=== PATIENT | female | born 1955 | race Caucasian/White ===

== ENCOUNTER 2016-12-07 18:02 | Observation (INO) | payer SELFPAY ==
[~2016-12-07] VITALS: Ht 147.3 cm; Wt 90.8 kg
[~2016-12-07 18:02] MED LIST: ASPEC325 PO; ATOR-24 PO; CLOP1TAB5 PO; CYCL10TA6 PO; LVQ250 PO; METO-551 PO; NTRSLP4 SL; NVLGI7030 SC; PRED20TA PO; VNTHFA/IN INH
[2016-12-07 19:00] VITALS: BP 144/81; PULSE 63; TEMP 36.6; O2SAT 96; Ht 147.3 cm; Wt 90.8 kg
[2016-12-07] MEDS ORDERED: NITROGLYCERIN 0.4 MG SL PER TAB CHARGE SL PRN ×2 (20:00)
[2016-12-07] MEDS ORDERED: ACETAMINOPHEN 325 MG TAB PO PRN (20:00)
[2016-12-07] MEDS ORDERED: ALBUTEROL HFA 8 GM INHALER INH PRN (20:00)
[2016-12-07] MEDS ORDERED: GI COCKTAIL PO PRN (20:00)
[2016-12-07] MEDS ORDERED: ZOLPIDEM TARTRATE 5 MG TAB PO PRN (20:00)
[2016-12-07] MEDS ORDERED: ONDANSETRON INJ 2 MG/ML 2 ML VIAL IV PRN (20:00)
[2016-12-07] MEDS ORDERED: ATORVASTATIN 40 MG TAB PO SCH (21:00)
[2016-12-07] MEDS ORDERED: INSULIN 70% ASPART PROTAMINE/30% ASPART SC SCH (21:00)
[2016-12-07] MEDS: METOPROLOL TARTRATE 50 MG TAB PO SCH (21:00)
--- NOTE | 2016-12-07 22:53 | HISTORY & PHYSICAL EXAMINATION ---
DATE OF ADMISSION: 12/07/2016 PRIMARY CARE PHYSICIAN: Dr. Nassar. CHIEF COMPLAINT: Chest pain. HISTORY OF PRESENT ILLNESS: Ms. Barbour is a pleasant 61-year-old woman with a history of severe coronary artery disease status post CABG and multiple prior PCIs with stents, known to me; who returns from outside hospital ED with chest pain. The patient has a long cardiac history as discussed below. She was recently admitted to [facility] on 2 occasions 2 weeks ago. Initial hospitalization occurred in the setting of an NSTEMI when presented with a troponin that peaked at approximately 3.6. She underwent cardiac catheterization at that time which showed a new 99% lesion in her OM1 distal to previously placed stents. She underwent PCTA with a reasonable result but stent could not be placed due to difficult anatomy. Post-procedure, she was chest pain free, and was discharged to home. She returned the subsequent day with COPD exacerbation. She was treated with bronchodilators, steroids and antibiotics, and discharged to home. Since that time, she has largely been well. She has been walking around her home and outside without significant chest discomfort. Although she does feel that she is more weak than before. Today, the day of admission, patient was at home, watching TV when felt a hot burning sensation starting in her epigastric region which extended up towards her head. This was different than the pain that she has had before. She was concerned, took 1 nitroglycerin with minimal relief and called the EMS. Upon arriving in the [facility] ED, she received 1 dose of morphine and her chest pain was resolved. She had an EKG there, which showed normal sinus rhythm with anterolateral T-wave inversions, unchanged from prior EKGs. She had 2 troponins that were negative. As cardiology was not available at [place] she was transferred back here for further management. At the time of arrival, patient was comfortable. She denies any recurrent chest pain. She denies any shortness of breath, palpitations or presyncope. No other new complaints. PAST MEDICAL HISTORY: 1. Coronary artery disease. The patient underwent prior 3-vessel bypass surgery with GRIMES to LAD, vein graft to ramus, vein graft to OM1. She had an NSTEMI back in June of 2016, at which point she was noted to have severe OM1 and ramus disease with occluded vein graft to ramus and occluded vein graft to circumflex. She was transferred to [facility] where Dr. Syed placed drug-eluting stents to her OM, ramus and distal left main into her proximal circumflex. Post stents patient was largely chest pain free until returned back to [facility] in November 2016. There had a PTCA of OM1 with reasonable result. 2. Type 2 diabetes. 3. Hypertension. 4. Prior tobacco abuse. 5. Hyperlipidemia. PAST SURGICAL HISTORY: 1. Prior cardiac surgery as above. 2. Status post hysterectomy. 3. Status post appendectomy. 4. Status post cholecystectomy. 5. Status post tubal ligation. FAMILY HISTORY: She has a sister and a daughter both with diabetes. Her father and mother both had heart disease as well as her brother. Mother of cancer at age 63. SOCIAL HISTORY: Long-term smoker, quit after her last hospitalization. Denies significant alcohol use. Currently out of work. 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 Lives near [place]. REVIEW OF SYSTEMS: A 10-point review of systems is completed and otherwise negative unless stated in the HPI. PHYSICAL EXAMINATION: VITAL SIGNS: The patient is afebrile. Blood pressure 144/84, heart rate was within normal range. GENERAL: The patient appears comfortable, in no acute distress. HEENT: Sclerae are anicteric. Oropharynx is clear. Mucous membranes are moist. NECK: Supple, no lymphadenopathy. LUNGS: Clear to auscultation. She had reasonable air movement with no significant wheezing. CARDIAC: She had a regular rate and rhythm with no appreciable murmurs, rubs or gallops. ABDOMEN: Soft, nontender, nondistended with positive bowel sounds. EXTREMITIES: Warm. She had trace lower extremity edema. She had intact distal pulses. SKIN: Showed no rashes or lesions. NEUROLOGIC: Cranial nerves II-XII are grossly intact. PSYCHIATRIC: She was alert and oriented x3 and mood and was appropriate. LABORATORY DATA: At outside hospital showed white blood cell count 6.8, hemoglobin of 12.4, platelets of 195. Her INR was 0.96. Her initial troponin was 0.02. Subsequent troponin was 0.022. Sodium was 137, potassium 4.4, BUN 22, creatinine 1.2. LFTs were within normal limits. Chest x-ray showed cardiomegaly with mild edema. EKG showed sinus bradycardia with anterior septal infarct and ST-T wave abnormality, potentially consistent with anterolateral ischemia, unchanged from prior. IMPRESSION AND PLAN: 1. Chest pain. The patient is here with atypical chest pain, unlikely to be cardiac in origin. Cardiac enzymes have been negative x2. EKG is unchanged. Only residual chest pain at this time, likely musculoskeletal. We will continue to treat conservatively. We will repeat EKG tonight repeat cardiac enzymes overnight. Assuming cardiac enzymes remain unremarkable and patient remains largely chest pain free, potentially could be discharged tomorrow with cardiology followup. 2. History of severe coronary artery disease. Continue patient's prior aspirin, Plavix, beta malcolm, high dose statin. She will need outpatient followup and at that time will consider stress test if recurrent pain to assess ischemic burden. 3. Mild pulmonary edema. We will resume patient on prior thiazide diuretic. 4. Diabetes. We will continue home diabetic regimen with insulin 70/30 and Accu-Cheks. 5. Chronic bronchitis. Symptoms slowly resolving. We will continue home bronchodilators. 6. Prophylaxis. We will start her on subQ Lovenox. DISPOSITION: The patient likely discharged to home tomorrow assuming cardiac enzymes and telemetry unremarkable. MTDD
[2016-12-08 00:05] VITALS: O2SAT 96
[2016-12-08 00:26] VITALS: BP 100/67; PULSE 74; TEMP 36.7; O2SAT 94
[2016-12-08] MEDS: CYCLOBENZAPRINE HCL 10 MG TAB PO SCH ×2 (00:35→08:39)
--- NOTE | 2016-12-08 02:51 | Medical Consult ---
Consultation Date of Consultation: Dec 08, 2016. Attending Physician: Harlan Fisher MD History of Present Illness 61 y/o F w/Hx DM, HTN, HPL and severe CAD - transferred from OSH for cardiac evaluation due to ongoing CP. She denies significant SOB, N/V, diaphoresis or radiation. She is currently describing chest wall pain rather than substernal pain. Past Medical/Surgical History 1) CAD 3V CABG (jett to LAD, v. to ramus, v. to OM1) NSTEMI 2016 leading to cath and 2 stents due to graft occlusions NSTEMI 2017 - PTCI of OM1 2) HTN 3) IDDM 4) Tobacco abuse - quit in last Mo Family History Diabetes mellitus SISTER, Onset:25's - 30 ( age 47) DAUGHTER, Onset:20's - 25 FH: brain cancer MOTHER ( age 63) FH: heart attack FATHER MOTHER FH: heart disease FATHER BROTHER BROTHER Hypertension FATHER BROTHER ( age 67) BROTHER Social History Smoking Status: Current Every Day Smoker Drug Use: none Allergies Coded Allergies: Ampicillin (Verified Allergy, Unknown, unknown, 11/17/16) Codeine (Verified Allergy, Unknown, rash, 11/17/16) Sulfa Antibiotics (Verified Allergy, Unknown, unknown, 11/17/16) Current Inpatient Medications Current Inpatient Medications Medications (Trade) Dose Ordered Sig/Graham Route Start Time Stop Time Status Last Admin Dose Admin Enoxaparin Sodium (Lovenox Inj) 40 mg Q24H SC 12/08/16 06:00 01/07/17 05:59 Acetaminophen (Tylenol Tab) 650 mg Q4H PRN PO 12/07/16 20:00 01/06/17 19:59 Zolpidem Tartrate (Ambien Tab) 5 mg HSZ PRN PO 12/07/16 20:00 01/06/17 19:59 Ondansetron HCl (Zofran Inj) 4 mg Q6H PRN IV 12/07/16 20:00 01/06/17 19:59 Nitroglycerin (Nitrostat Tab) 0.4 mg UD PRN SL 12/07/16 20:00 01/06/17 19:59 Albuterol (Ventolin Hfa Inhaler) 2 puffs Q6H PRN INH 12/07/16 20:00 01/06/17 19:59 Atorvastatin Calcium (Lipitor Tab) 40 mg HS PO 12/07/16 21:00 01/06/17 20:59 12/08/16 00:30 40 MG Clopidogrel Bisulfate (plAVix TAB) 75 mg DAILY PO 12/08/16 09:00 01/07/17 08:59 Cyclobenzaprine HCl (Flexeril Tab) 10 mg TID PO 12/07/16 21:00 01/06/17 20:59 12/08/16 00:35 10 MG Insulin Aspart Prota 70%/Aspart 30% (novoLOG MIX 70/ 30) 20 units QAM SC 12/08/16 09:00 01/07/17 08:59 Metoprolol Tartrate (Lopressor Tab) 50 mg BID PO 12/07/16 21:00 01/06/17 20:59 Aspirin (Ecotrin Tab) 81 mg QAM PO 12/08/16 09:00 01/07/17 08:59 Pantoprazole Sodium (Protonix Tab) 40 mg QAM PO 12/08/16 09:00 01/07/17 08:59 Miscellaneous Medication (Gi Cocktail) 24 ml DAILY PRN PO 12/07/16 20:00 01/06/17 19:59 UNV Insulin Aspart Prota 70%/Aspart 30% (novoLOG MIX 70/ 30) 12 units DAILY@1700 SC 12/08/16 17:00 01/07/17 16:59 Review of Systems Constitutional: No chills, No fever, No sweats Eyes: No eye pain, No worsening of vision ENT: No hearing loss, No nasal symptoms, No unusual epistaxis Respiratory: No cough, No sputum, No wheezing Cardiovascular: + chest pain, No PND, No claudication, No edema, No orthopnea Abdomen: No nausea, No pain, No vomiting Musculoskeletal: No joint pain, No muscle pain Genitourinary - Female: No dysuria, No urinary frequency, No urinary urgency Neurologic: No memory loss, No paralysis, No weakness Psychiatric: No depression symptoms Endocrine: No fatigue Hematologic / Lymphatic: No abnormal bleeding/bruising Integumentary: No rash Physical Exam Date Time Temp Pulse Resp B/P Pulse Ox O2 Delivery O2 Flow Rate FiO2 12/08/16 00:26 36.7 74 20 100/67 94 Room Air 12/08/16 00:05 96 Room Air 1/31/17 19:00 36.6 63 18 144/81 96 Room Air General Appearance: WD/WN, no apparent distress Head: normocephalic, atraumatic Eyes: normal inspection, PERRL, EOMI ENT: normal ENT inspection, pharynx normal Neck: supple, no adenopathy, thyroid normal, no JVD Respiratory/Chest: chest non-tender, lungs clear, normal breath sounds Cardiovascular: regular rate, rhythm, no edema, no gallop, no JVD, no murmur, normal peripheral pulses Abdomen/GI: normal bowel sounds, non tender, soft Back: normal inspection, no CVA tenderness, no muscle spasm, normal range of motion Extremities/Musculoskelatal: normal inspection, no calf tenderness, normal capillary refill, no pedal edema, normal range of motion Neurologic/Psych: deployment manager II-XII nml as tested, no motor/sensory deficits, alert, normal mood/affect, normal reflexes, oriented x 3 Skin: normal color, warm/dry, no rash Laboratory Results Last 24 Hours Test 12/07/16 19:58 12/07/16 20:50 Creatine Kinase MB Ratio Creatine Kinase MB < 0.5 ng/ml Troponin I < 0.015 ng/ml Assessment & Plan 61 y/o F w/Hx DM, HTN, HPL and severe CAD - transferred from OSH for cardiac evaluation due to ongoing CP. 1) CP - pt was admitted by interventional cardiology - per admission there is no immediate plan for catheterization and she is being medically managed. We will defer to cardiology for further testing. Currently there has not been a troponin elevation to indicate an evolving SD and her pain is brought about by coughing appearing more as chest wall pain. she will cont Plavix, ASA. statin. B malcolm. 2) DM - placed on sliding scale 3) HTN - cont Metoprolol 4) HPL - Cont Atorvastatin ttal time for this consult including chart review - review of attending notes, labs, prev cath report - 31 min
[2016-12-08 04:00] VITALS: O2SAT 96
[2016-12-08 04:45] VITALS: BP 124/79; PULSE 60; TEMP 36.5; O2SAT 95
[2016-12-08] MEDS ORDERED: ENOXAPARIN 40 MG/0.4 ML SYR SC SCH (06:00)
[2016-12-08 06:17] LABS: HEMATOCRIT 36.4 % (37-47); MEAN CELL VOLUME 91.5 fL (80-100); MEAN CORPUSCULAR HEMOGLOBIN 31.2 pg (25-34); MEAN CORPUSCULAR HGB CONC 34.1 g/dl (32-36); MEAN PLATELET VOLUME 8.5 fL (7.4-10.4); PLATELET COUNT 151 K/uL (130-400); RED BLOOD COUNT 3.98 M/uL (4.2-5.4); WHITE BLOOD COUNT 6.03 K/uL (4.8-10.8)
[2016-12-08] MEDS ORDERED: ALUMINUM/MAGNESIUM SUSP 72 ML, LIDOCAINE HCL 2% VISCOUS SOLN 24 ML, BARCODE IDENTIFIER ... PO PRN ×2 (06:45)
[2016-12-08 06:47] LABS: BLOOD UREA NITROGEN 19 mg/dl (7-18); BUN/CREATININE RATIO 17.3 (10-20); CALCIUM 8.9 mg/dl (8.5-10.1); CARBON DIOXIDE 28 mmol/L (21-32); CHLORIDE 109 mmol/L (98-107); GLUCOSE 144 mg/dl (70-99); POTASSIUM 4.1 mmol/L (3.5-5.1); SODIUM 144 mmol/L (136-145)
[2016-12-08 08:11] VITALS: BP 126/78; PULSE 63; TEMP 36.3; O2SAT 96
[2016-12-08] MEDS: METOPROLOL TARTRATE 50 MG TAB PO SCH (08:39)
[2016-12-08] MEDS ORDERED: PANTOprazole SOD 40 MG TAB PO SCH (09:00)
[2016-12-08] MEDS ORDERED: CLOPIDOGREL BISULFATE 75 MG TAB PO SCH (09:00)
[2016-12-08] MEDS ORDERED: ASPIRIN 81 MG ECTAB PO SCH (09:00)
[2016-12-08] MEDS ORDERED: INSULIN 70% ASPART PROTAMINE/30% ASPART SC SCH ×2 (09:00→17:00)
[2016-12-08] MEDS ORDERED: ASPEC81 PO (09:03)
[2016-12-08] MEDS ORDERED: PRT40 PO (09:03)
[2016-12-08] MEDS ORDERED: TRIA37.5 PO (09:03)
--- NOTE | 2016-12-08 09:06 | Discharge Instructions ---
Discharge Instructions Admission Reason for Admission: Chest Pain Discharge Discharge Diagnosis / Problem: Chest pain Discharge Goals Goal(s): Decrease discomfort, Improve function Activity Recommendations Activity Limitations: resume your previous activity Lifting Limitations: none Exercise/Sports Limitations: none May Resume Sexual Activity: when tolerated Shower/Bathe: no limitations Driving or Machine Use: no limitations . Instructions / Follow-Up Instructions / Follow-Up Follow-up with primary care in 1-2 weeks. Follow-up with cardiology in 1 month Current Hospital Diet Patient's current hospital diet: AHA Diet (Heart Healthy), Diabetes Type 2 Diet Discharge Diet Recommended Diet: AHA Diet (Heart Healthy), Diabetes Type 2 Diet Procedures Procedures Performed: None Pending Studies Studies pending at discharge: no Laboratory Results Hemoglobin A1c Test 11/17/16 10:15 Range/Units Estimated Average Glucose 249 mg/dl Hemoglobin A1c 10.3 H 4.5-5.6 % Medical Emergencies . Who to Call and When: Medical Emergencies: If at any time you feel your situation is an emergency, please call 911 immediately. . Non-Emergent Contact Non-Emergency issues call your: Primary Care Provider, Patent Chemist Contact Number: Cardiology - Dr. Fisher [phone] . . "Provider Documentation" section prepared by Leonard Fisher. VTE Core Measure Inpt VTE Proph given/why not?: Enoxaparin (Lovenox)SQ
--- NOTE | 2016-12-08 09:18 | Discharge Summary ---
Discharge Summary Admission Date: Dec 07, 2016 at 19:05 Discharge Date: Dec 08, 2016 Discharge Disposition: Home Principal Diagnosis: Chest Paini Immunizations: Have You Had Influenza Vaccine: No History of Pneumococcal: No Procedures: None Consultations: Cardiology Medication Reconciliation New Medications: Triamterene/Hctz (Dyazide 37.5MG/25MG) Cap 1 CAP PO DAILY PRN for leg swelling for 30 Days, #30 CAP 3 Refills Aspirin (Aspirin EC Low Dose) 81 Mg Ectab 81 MG PO QAM for 30 Days, #30 TAB 9 Refills Pantoprazole (Pantoprazole Sodium) 40 Mg Tab 40 MG PO QAM for 30 Days, #30 TAB 9 Refills Continued Medications: Albuterol Hfa (Ventolin Hfa) 200 Puffs/00224 Mcg Aers 2-4 PUFFS INH Q6H PRN for SOB/Wheezing, #1 INHALER Atorvastatin (Lipitor) 40 Mg Tab 1 TAB PO HS for 90 Days, #90 TAB 3 Refills Clopidogrel Bisulfate (Plavix) 75 Mg Tab 75 MG PO DAILY, #30 TAB Take as directed. Cyclobenzaprine Hcl (Flexeril) 10 Mg Tab 1 TAB PO TID for 10 Days, #30 TAB Insulin Aspart 70/30 (Novolog Mix 70/30) Susp 20 UNIT SC QAM, BTL Insulin Aspart 70/30 (Novolog Mix 70/30) Susp 12 UNIT SC QPM, BTL Metoprolol Tartrate (Lopressor) 50 Mg Tab 1 TAB PO BID for 30 Days, #60 TAB Take as directed Nitroglycerin (Nitrostat) 0.4 Mg/1 Tab Subl 0.4 MG SL UD PRN for Chest Pain for 30 Days, #30 TAB Take 1 tablet every 5 minutes for chest pain, up to 3 times. If pain not resolved call 911 or go to ER. Discontinued Medications: Aspirin (Aspirin) 325 Mg Ectab 325 MG PO QAM for 30 Days, #30 TAB Take as directed Levofloxacin (Levofloxacin) 250 Mg Tab 250 MG PO DAILY for 5 Days, #5 TAB Take for urinary tract infection starting 11/20/15, finish on 11/24/15. Prednisone (Prednisone) 20 Mg Tab 2 TAB PO DAILY, #8 TAB Discharge Exam Physical Exam: General Appearance: WD/WN ENT: hearing grossly normal, pharynx normal Neck: supple, no JVD Respiratory/Chest: lungs clear, normal breath sounds, no respiratory distress Cardiovascular: regular rate, rhythm, no edema, no gallop, no JVD, + pertinent finding (Chest wall tender to palpation on left side lateral to sternum) Abdomen / GI: normal bowel sounds, non tender, soft Extremities: no pedal edema Neurologic/Psychiatric: interpreter translator II-XII nml as tested, alert, normal mood/affect Skin: normal color, warm/dry, no rash Hospital Course Ms. Barbour is a pleasant 61-year-old woman with a history of severe coronary artery disease status post CABG and multiple prior PCIs with stents who returned from outside hospital ED with chest pain. Patient with 2 recent hospitalizations at [facility]. Initially admitted with NSTEMI 3 weeks ago. Treated with PTCA of 99% OM1, stent could not be delivered. Adequate POBA result. Readmitted next day with COPD exacerbation. Had been doing well until day of admission when developed burning epigastric pain which radiated up through her head. Pain improved with 1 slntg at home, relieved completely with morphine in the ED. Initial ECG, cardiac enzymes at [facility] ED unremarkable. Transferred to [facility] where cardiac enzymes remained negative, ecg/telemetry unremarkable. She had mild left sided chest wall tenderness to palpation, worse with coughing but no other recurrent chest pain. Pain thought to be musculoskeletal vs possible GI and non-cardiac. Will discharge on prior DAPT, and remainder of cardiac meds. Added PPI and prior Dyazide for mild lower extremity edema. Patient will follow-up with her PCP in 1-2 weeks. Follow-up with cardiology in 1-2 months. If recurrent anginal pain in interim would consider stress test. Discussed case with Dr. Syed at [facility]. May have additional interventional options if significant ischemia. Total Time Spent: Less than 30 minutes This includes examination of the patient, discharge planning, medication reconciliation, and communication with other providers. Discharge Instructions Please refer to the electronic Patient Visit Report (Discharge Instructions) for additional information. Follow-Up PCP 1-2 weeks Cardiology 1-2 months.
[2016-12-08 09:31] VITALS: BP 126/78; PULSE 63; TEMP 36.3; O2SAT 96
== END 2016-12-08 12:45 | disposition home or self-care (01) ==
LOC: INTOOBSV 19:05 → C.MED 19:05
PROVIDERS: ADMIT Internal Medicine Interventional Cardiology; ATTEND Internal Medicine Interventional Cardiology
DX: R07.89 Other chest pain (principal); J81.1 Chronic pulmonary edema; I25.10 Atherosclerotic heart disease of native coronary artery without angina pectoris; J44.9 Chronic obstructive pulmonary disease, unspecified; E11.9 Type 2 diabetes mellitus without complications; I10 Essential (primary) hypertension; E78.5 Hyperlipidemia, unspecified; I25.2 Old myocardial infarction; Z87.891 Personal history of nicotine dependence; Z95.1 Presence of aortocoronary bypass graft; Z95.5 Presence of coronary angioplasty implant and graft; Z79.01 Long term (current) use of anticoagulants; Z79.4 Long term (current) use of insulin; Z79.899 Other long term (current) drug therapy; Z88.0 Allergy status to penicillin; Z88.2 Allergy status to sulfonamides; Z88.5 Allergy status to narcotic agent; Z82.49 Family history of ischemic heart disease and other diseases of the circulatory system; Z83.3 Family history of diabetes mellitus

== ENCOUNTER 2018-06-23 13:12 | Inpatient (IN) | payer OTHER ==
[~2018-06-23] VITALS: Ht 152.4 cm; Wt 89.7 kg
[~2018-06-23 13:12] MED LIST changes: -ASPEC325 PO; +ASPI-320 PO; -LVQ250 PO; +PANT1TAB4 PO; -PRED20TA PO; +TRIA37.5 PO; -VNTHFA/IN INH
[2018-06-23 15:58] VITALS: BP 112/68; PULSE 80; TEMP 37; O2SAT 100
[2018-06-23 16:00] VITALS: O2SAT 100
[2018-06-23 16:08] VITALS: BP 112/68; PULSE 80; TEMP 37; O2SAT 100; BMI 41.8
[2018-06-23] MEDS ORDERED: LACTOBACILLUS ACIDOPHILUS (FLORANEX) TAB PO ONE (17:32)
[2018-06-23] MEDS ORDERED: NITROGLYCERIN 0.4 MG SL PER TAB CHARGE SL PRN (17:45)
[2018-06-23] MEDS ORDERED: ACETAMINOPHEN 325 MG TAB PO PRN (17:45)
[2018-06-23] MEDS ORDERED: MAGNESIUM HYDROXIDE SUSP 30 ML UDC PO PRN (17:45)
[2018-06-23] MEDS ORDERED: TRAMADOL HCL 50 MG TAB PO PRN (18:00)
[2018-06-23] MEDS ORDERED: GLUCOSE 10 TABS/TUBE PO PRN (18:30)
[2018-06-23] MEDS ORDERED: CARBOHYDRATES FOR HYPOGLYCEMIA PO PRN (18:30)
[2018-06-23] MEDS ORDERED: DEXTROSE 50% 50 ML SYR IV PRN (18:30)
[2018-06-23] MEDS ORDERED: GLUCAGON FOR INJ 1 MG VIAL IM PRN (18:30)
[2018-06-23] MEDS ORDERED: GLUCOSE 40% GEL 15 GM TUBE PO PRN (18:30)
--- NOTE | 2018-06-23 18:35 | DIAGNOSTIC IMAGING REPORT ---
SINGLE VIEW CHEST CLINICAL HISTORY: Congestive heart failure. FINDINGS: An AP, portable, upright chest radiograph is compared to study dated 11/20/2016. The examination is degraded by portable technique and patient rotation. The patient is status post midline sternotomy. The heart is enlarged and there is atherosclerotic calcification of the thoracic ureter. There is pulmonary vascular congestion. No airspace consolidation or large pleural effusion is identified. No pneumothorax is seen. The skeletal structures are osteopenic. The bony thorax is grossly intact. IMPRESSION: Cardiomegaly with evidence of mild congestive failure. Electronically signed by: Spenser Brizuela M.D. 06/23/2018 6:33 PM Dictated Date/Time: 06/23/2018 6:32 PM
[2018-06-23 19:03] VITALS: BP 108/51; PULSE 90; TEMP 36.4; O2SAT 96
--- NOTE | 2018-06-23 19:22 | History and Physical ---
History & Physical Date & Time of Service: Jun 23, 2018 at 17:56 Chief Complaint: Pulmonary Edema, Elevated Troponin Primary Care Physician: Aidan Nassar D.O. History of Present Illness Source: patient, hospital records (from [facility] and [facility] ) 62yo female with history of CAD s/p CABG in 1999, HTN, T2DM, morbid obesity, and long-standing asthma who presents as a transfer from [facility] for several concerns including chest tightness, elevated troponin, ongoing shortness of breath, and concerns of LE edema. 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 She required multiple surgeries for debridement, antibiotics, and ultimately placement of a wound vac. During the latter portion of her stay she states she had been short of breath and this was treated with bronchodilators. Upon discharge she states she was still short of breath. On Tuesday of this week a home health nurse placed a wound vac on the right inner thigh wound. Over the next 48 hours there were issues with getting a good seal on the right leg and it was leaking by report. Tuesday pm the patient recalls having shortness of breath at night-time and then had recurrent dyspnea along with chest tightness on . She also reports having had severe bilateral LE edema ("my legs feel like lead") for some time. She also complains of edema in her abdomen, arms, and right side of her face. She went to [facility] afternoon for the above complaints. She was admitted through the [place] ER to their telemetry unit. The patient states the wound vac was removed due to persistent leaking. Records from [place] were reviewed and the following were found - 1. CTA chest was negative for PE but showed small b/l pleural effusions; no pneumonia seen 2. b/l LE dopplers negative for DVT although the right leg was limited due to her wound 3. EKG with NSR and no ST changes (my reading) 4. ABG - 7.155/59.7/59/-8.4 5. BNP 8792 6. lactate 0.9 7. Na 139, K 4.5, Creatinine 1, albumin 2.3 8. Blood cx's sent 9. CBC with WBC 10.5, Hb 9.5, platelets 664 10. serial troponins - 0.057, 0.052, 0.060, 0.053 During my initial assessment the patient complained of fatigue but confirmed her dyspnea was improved. Records suggest she received at least 2 doses of IV lasix while at [facility]. She denied any chest pain. Lastly, the patient mentions she was diagnosed with c. diff colitis while at [facility]. She cannot recall how long she has been on vancomycin. Past Medical/Surgical History PMH: 1. CAD, s/p NSTEMI, s/p CABG in 1999, s/p multiple stents in the past as well 2. T2DM 3. HTN 4. tobacco dependence - quit 05/2018 5. hyperlipidemia 6. morbid obesity 7. asthma since childhood 8. 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 c diff colitis - 06/2018 PSH: 1. b/l cataract extraction 2. multiple debridement surgeries for Kath's Gangrene 3. s/p hysterectomy 1988 4. s/p appendectomy 1986 5. s/p cholecystectomy 1985 6. s/p tubal ligation 7. 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 ) Immunizations History of Influenza Vaccine: No History of Pneumococcal: No Allergies Coded Allergies: Ampicillin (Verified Allergy, Unknown, unknown, 11/17/16) Codeine (Verified Allergy, Unknown, rash, 11/17/16) Sulfa Antibiotics (Verified Allergy, Unknown, unknown, 11/17/16) Home Medications Scheduled Aspirin (Aspirin EC Low Dose), 81 MG PO QAM Atorvastatin (Lipitor), 1 TAB PO HS Clopidogrel Bisulfate (Plavix), 75 MG PO DAILY Cyclobenzaprine Hcl (Flexeril), 1 TAB PO TID Insulin Aspart 70/30 (Novolog Mix 70/30), 20 UNIT SC QAM Insulin Aspart 70/30 (Novolog Mix 70/30), 12 UNIT SC QPM Metoprolol Tartrate (Lopressor), 1 TAB PO BID Pantoprazole (Pantoprazole Sodium), 40 MG PO QAM Scheduled PRN Nitroglycerin (Nitrostat), 0.4 MG SL UD PRN for Chest Pain Triamterene/Hctz (Dyazide 37.5MG/25MG), 1 CAP PO DAILY PRN for leg swelling Review of Systems Constitutional: + chills, + sweats, + weakness (legs), + fatigue, No fever Eyes: No worsening of vision ENT: No nasal symptoms, No sore throat, No trouble swallowing Respiratory: + cough, + shortness of breath, + dyspnea on exertion, + dyspnea at rest, No sputum, No wheezing Cardiovascular: + chest pain, + orthopnea, + edema, No PND, No palpitations Abdomen: + diarrhea, No pain, No nausea, No vomiting, No GI bleeding Musculoskeletal: No joint pain Genitourinary - Female: No dysuria Neurologic: + numbness/tingling (feet) Psychiatric: No depression symptoms Endocrine: + fatigue Hematologic / Lymphatic: No abnormal bleeding/bruising Integumentary: + rash (dry skin ) Physical Exam Vital Signs Date Time Temp Pulse Resp B/P (MAP) Pulse Ox O2 Delivery O2 Flow Rate FiO2 06/23/18 16:08 37.0 80 20 112/68 100 Nasal Cannula 3.0 06/23/18 16:00 100 Nasal Cannula 3.0 06/23/18 15:58 37.0 80 20 112/68 (83) 100 Nasal Cannula 3.0 General Appearance: no apparent distress, + obese, + pertinent finding (looks tired) Head: normocephalic, atraumatic Eyes: PERRL (lens implants b/l ) ENT: pharynx normal Neck: supple, no adenopathy, no JVD Respiratory/Chest: no respiratory distress, no accessory muscle use, + rales ( fine, both bases) Cardiovascular: regular rate, rhythm, no gallop, no murmur, normal peripheral pulses Abdomen/GI: normal bowel sounds, non tender, soft, no organomegaly, + pertinent finding (multiple scars abdominal wall ) Back: normal inspection Extremities/Musculoskelatal: + pedal edema, + swelling (2-3+ on right extending to the thigh; 1-2+ on left also extending to at least the knee) Neurologic/Psych: no motor/sensory deficits (strength all muscle groups of b/l legs 5/5 ), alert, normal mood/affect, normal reflexes, oriented x 3 Skin: + pertinent finding (no generalized rash; she does have dry skin in multiple locations; wound, right groin/upper right thigh anteriorly (chaperoned by female nursing staff) -- large wound taking up most of the right anterior superior thigh extending from the inguinal crease to the right labia majora and inferiorly to the perineal region; there are several intact sutures superiorly and inferiorly; the wound bed looks great with healthy pink granulation tissue on all surfaces; no drainage, no odor, no erythema ) Lymphatic: no adenopathy (no cervical ) Diagnostics Laboratory Results Results Past 24 Hours Test 06/23/18 15:47 06/23/18 17:32 Range/Units Bedside Glucose 182 70-90 mg/dl Diagnostic Radiology 1. CTA chest (done at [facility]) - no PE no pneumonia b/l pleural effusions (small) dense coronary calcifications 2. b/l LE dopplers (done at [facility]) Negative for DVT b/l although right leg was suboptimally imaged 3. cxr - [facility] - pending EKG my reading - NSR, low voltage, anterior Q waves, no ST segment changes Impression Assessment and Plan 62yo female with history of CAD s/p CABG in 1999, HTN, T2DM, morbid obesity, long-standing asthma, prior tobacco dependence (50 pack years), and recent month -long hospitalization at [facility] in [place] for Kath' s gangrene of the right thigh/groin who presents as a transfer from [facility] due to concerns for ACS and acute CHF. 1. question of ACS in the setting of known CAD - although her troponins are minimally elevated she does not report ischemic symptoms and EKG does not show ST changes. During my admission assessment she was seen by Dr. Harlan Fisher from cardiology and he, too, does not feel she has had an ACS. Her troponin elevation is likely demand ischemia possibly from acute CHF (see below) . 2. acute CHF - suspect diastolic in nature. She received perhaps 2 doses of IV lasix at the outside hospital and she is already improved from a pulmonary symptom standpoint. She appears relatively euvolemic at the time of transfer to [facility]. Await chest x-ray. Her o2 sats off oxygen are 98-100% at time of admission. Echo ordered. 3. edema - likely due to #2. Cannot exclude hypothyroid state - awaiting TSH. Hypoalbuminemia likely contributing as her albumin is nearly 2. Since she already received lasix today will defer on additional doses and consider another dose tomorrow. Additionally, since the doppler of the RLE was suboptimal, will repeat the study here to exclude DVT given her recent prolonged hospitalization. 4. recent Kath's gangrene of right groin/thigh - unfortunately the Wound Care Team will not be available until this coming Tuesday. However, Dr. Kj Bhakta from surgery is willing to look at the patient's wound tomorrow and consider placing a wound vac on such if appropriate. In meantime will place iodoform dressings in the wound bed and cover w/ sterile dressings. 5. T2DM - lantus 15 units at HS; novolog correction factor 30 and carb ratio 1: 10. 6. h/o asthma - suspect she likely has COPD due to long-standing tobacco dependence - not in exacerbation at this time. Nebs/inhalers prn for symptoms. 7. morbid obesity - BMI 41. 8. HTN - controlled; continue home medications. 9. CAD - continue BB, statin, asa, plavix. 10. hyperlipidemia - statin. 11. DVT proph - lovenox once daily. 12. abnormal ABG at [facility] earlier today - she had a mixed metabolic/respiratory acidosis at their facility. Will repeat a VBG now. 13. hypoalbuminemia / protein calorie malnutrition - consider MVI, vit C, zinc , and glucerna. 14. anemia - likely due to chronic disease - consider iron studies, b12, folate , etc. 15. FEN - AHA/DM diet; saline lock; BMP am. Advanced Directives Existing Living Will: No Existing Power of Shearer Operator: No Resuscitation Status full code, level 1, but she would not want indefinite life-sustaining measures VTE Prophylaxis Will order VTE Prophylaxis: Yes Note total time about 80 minutes Additional Copies To Aidan Nassar D.O.; Harlan Fisher MD
[2018-06-23 19:38] LABS: HEMATOCRIT 25.8 % (37-47); HEMOGLOBIN 8.1 g/dL (12.0-16.0); MEAN CELL VOLUME 88.7 fL (80-100); MEAN CORPUSCULAR HEMOGLOBIN 27.8 pg (25-34); MEAN CORPUSCULAR HGB CONC 31.4 g/dl (32-36); MEAN PLATELET VOLUME 8.3 fL (7.4-10.4); PLATELET COUNT 440 K/uL (130-400); RED CELL DISTRIBUTION WIDTH CV 16.9 % (11.5-14.5); RED CELL DISTRIBUTION WIDTH SD 54.3 fL (36.4-46.3)
[2018-06-23 20:00] LABS: CALCIUM 8.2 mg/dl (8.5-10.1); CREATININE 1.18 mg/dl (0.60-1.20); POTASSIUM 4.3 mmol/L (3.5-5.1)
[2018-06-23] MEDS: VANCOMYCIN HCL 125 MG/2.5ML SOLN PO SCH (20:52)
[2018-06-23] MEDS: RASPBERRY SYRUP 5 ML UDP PO SCH (20:52)
[2018-06-23] MEDS: METOPROLOL TARTRATE 50 MG TAB PO SCH (20:54)
[2018-06-23] MEDS: PRIMIDONE 50 MG TAB PO SCH (20:54)
[2018-06-23] MEDS: GABAPENTIN 100 MG CAP PO SCH (20:54)
[2018-06-23] MEDS: ATORVASTATIN 40 MG TAB PO SCH (20:54)
[2018-06-23] MEDS: INSULIN ASPART 100 UNITS/ML 3 ML PEN SC SCH (20:56)
[2018-06-23] MEDS: INSULIN GLARGINE SOLOSTAR 100 UNITS/ML 3 ML PEN SC SCH (20:56)
[2018-06-23] MEDS ORDERED: LORAZEPAM 2 MG/ML 1 ML VIAL IV STA ×2 (21:38→22:36)
[2018-06-23] MEDS ORDERED: LORAZEPAM 2 MG/ML 1 ML VIAL ONE (21:41)
[2018-06-23 22:18] VITALS: PULSE 108; O2SAT 100
[2018-06-23 23:03] VITALS: BP 121/72; PULSE 94; TEMP 37.1; O2SAT 100
[2018-06-24] VITALS (15 sets, daily range): BP systolic 107–134; BP diastolic 52–79; PULSE 84–112; TEMP 36.6–36.8; O2SAT 91–100; Ht 152.4 cm; Wt 89.7 kg
[2018-06-24] MEDS: RASPBERRY SYRUP 5 ML UDP PO SCH ×5 (00:15→23:58)
[2018-06-24] MEDS: VANCOMYCIN HCL 125 MG/2.5ML SOLN PO SCH ×5 (00:15→23:58)
[2018-06-24] MEDS: COLESTIPOL HCL 1 GM TAB PO SCH ×3 (00:15→21:11)
[2018-06-24] MEDS: ENOXAPARIN 40 MG/0.4 ML SYR SC SCH ×2 (00:15→21:16)
[2018-06-24 05:44] LABS: HEMATOCRIT 26.8 % (37-47); HEMOGLOBIN 8.3 g/dL (12.0-16.0); MEAN CELL VOLUME 90.8 fL (80-100); MEAN CORPUSCULAR HEMOGLOBIN 28.1 pg (25-34); NUCLEATED RED BLOOD CELL ABS 0.02 K/uL (0-0); PLATELET COUNT 367 K/uL (130-400); RED CELL DISTRIBUTION WIDTH CV 16.8 % (11.5-14.5); RED CELL DISTRIBUTION WIDTH SD 55.6 fL (36.4-46.3); WHITE BLOOD COUNT 11.77 K/uL (4.8-10.8)
[2018-06-24] MEDS: ALBUT/IPRATROP 3MG/0.5MG NEB 3 ML VIAL INH SCH ×5 (06:43→19:22)
[2018-06-24] MEDS: INSULIN ASPART 100 UNITS/ML 3 ML PEN SC SCH ×4 (07:00→21:22)
[2018-06-24] MEDS ORDERED: NURSING VERBAL MED ORDER ONE (07:00)
[2018-06-24] MEDS ORDERED: FUROSEMIDE INJ 20 MG in SYRINGE 0 ML IV SCH (07:15)
[2018-06-24] MEDS: LACTOBACILLUS ACIDOPHILUS (FLORANEX) TAB PO SCH ×3 (08:17→17:33)
[2018-06-24] MEDS: PANTOprazole SOD 40 MG TAB PO SCH (08:17)
[2018-06-24] MEDS: CLOPIDOGREL BISULFATE 75 MG TAB PO SCH (08:17)
[2018-06-24] MEDS: ASPIRIN 81 MG ECTAB PO SCH (08:18)
[2018-06-24] MEDS: METOPROLOL TARTRATE 50 MG TAB PO SCH ×2 (08:18→21:14)
[2018-06-24] MEDS ORDERED: ASCORBIC ACID 500 MG TAB PO ONE (09:31)
[2018-06-24] MEDS ORDERED: CEROVITE ADV FORMULA TAB PO ONE (09:31)
[2018-06-24] MEDS ORDERED: ZINC SULFATE 220 MG CAP PO ONE (09:31)
--- NOTE | 2018-06-24 09:48 | Progress Note ---
Subjective Date of Service: Jun 24, 2018. Subjective Pt evaluation today including: conversation w/ patient, conversation w/ family , physical exam, chart review, lab review, review of studies (records from [facility] reviewed; cxr reviewed), conversation w/ personal consultant (cardiology - Dr. Fisher), review of inpatient medication list Pain: no pain Voiding: dyson catheter in place tele without dysrhythmia overnight she had restless night with dyspnea and PND required oxymask and received ativan for anxiety received a prn duoneb with no appreciable effect troponins rechecked - mildly elevated but they were also elevated in [facility] CTA chest done in [place] earlier this month with b/l effusions & edema c/w pulmonary edema she c/o fatigue no chest pain no cough Review of Systems Constitutional: No fever, No chills Respiratory: + shortness of breath, + dyspnea at rest, No cough Cardiac: + orthopnea, + PND, + edema, No chest pain Abdomen: + diarrhea, No pain, No GI bleeding Objective Vital Signs Date Time Temp Pulse Resp B/P (MAP) Pulse Ox O2 Delivery O2 Flow Rate FiO2 06/24/18 08:00 100 Nasal Cannula 3.0 06/24/18 07:19 36.8 99 22 128/68 (88) 97 BiPAP 06/24/18 07:04 112 92 35 06/24/18 06:43 111 32 91 Room Air 06/24/18 03:30 36.6 89 18 124/67 (86) 96 Room Air 06/23/18 23:03 37.1 94 20 121/72 (88) 100 Oxymask 10.0 06/23/18 22:18 108 28 100 Mask 15.0 06/23/18 20:52 Room Air 06/23/18 19:03 36.4 90 20 108/51 (70) 96 Room Air 06/23/18 16:08 37.0 80 20 112/68 100 Nasal Cannula 3.0 06/23/18 16:00 100 Nasal Cannula 3.0 06/23/18 15:58 37.0 80 20 112/68 (83) 100 Nasal Cannula 3.0 Physical Exam General Appearance: no apparent distress, + obese, + pertinent finding (tired appearing but alert & able to answer questions) ENT: pharynx normal Neck: no JVD Respiratory/Chest: no respiratory distress, no accessory muscle use, + crackles (both bases), + pertinent finding (no wheezing) Cardiovascular: regular rate, rhythm, no gallop, no murmur Abdomen: normal bowel sounds, non tender, soft, no organomegaly Extremities: + pedal edema, + swelling (Right leg worse than left leg, no change from prior exam) Neurologic/Psychiatric: alert, oriented x 3 Skin: + pallor, + pertinent finding (large dressing intact to right upper thigh ) Laboratory Results Last 24 Hours Test 06/23/18 15:47 06/23/18 19:12 06/23/18 19:13 06/23/18 19:24 Bedside Glucose 182 mg/dl Prothrombin Time 10.5 SECONDS Prothromb Time International Ratio 1.0 Sodium Level 137 mmol/L Potassium Level 4.3 mmol/L Chloride Level 101 mmol/L Carbon Dioxide Level 25 mmol/L Anion Gap 11.0 mmol/L Blood Urea Nitrogen 12 mg/dl Creatinine 1.18 mg/dl Est Creatinine Clear Calc Drug Dose 52.9 ml/min Estimated GFR () 58.1 Estimated GFR (Non- 50.1 BUN/Creatinine Ratio 9.9 Random Glucose 150 mg/dl Calcium Level 8.2 mg/dl Thyroid Stimulating Hormone (TSH) 4.670 uIu/ml Chemistry Specimen Hemolysis Venous Blood pH 7.46 Venous Blood Partial Pressure CO2 39 mmHg Venous Blood Partial Pressure O2 27 mmHg Venous Blood HCO3 27 mmol/L Venous Blood Oxygen Saturation < 60.0 % Venous Blood Base Excess 3.3 mEq/L White Blood Count 15.30 K/uL Red Blood Count 2.91 M/uL Hemoglobin 8.1 g/dL Hematocrit 25.8 % Mean Corpuscular Volume 88.7 fL Mean Corpuscular Hemoglobin 27.8 pg Mean Corpuscular Hemoglobin Concent 31.4 g/dl RDW Standard Deviation 54.3 fL RDW Coefficient of Variation 16.9 % Platelet Count 440 K/uL Mean Platelet Volume 8.3 fL Test 06/23/18 20:35 06/23/18 22:29 06/23/18 23:01 06/24/18 05:32 Bedside Glucose 176 mg/dl Troponin I 0.117 ng/ml 0.092 ng/ml Arterial Blood pH 7.36 Arterial Blood Partial Pressure CO2 44 mmHg Arterial Blood Partial Pressure O2 142 mm/Hg Arterial Blood HCO3 24 mmol/L Arterial Blood Oxygen Saturation 98.2 % Arterial Blood Base Excess -1.1 mEq/L Arterial Blood Gas Delivery 11 L Eran Test POS White Blood Count 11.77 K/uL Red Blood Count 2.95 M/uL Hemoglobin 8.3 g/dL Hematocrit 26.8 % Mean Corpuscular Volume 90.8 fL Mean Corpuscular Hemoglobin 28.1 pg Mean Corpuscular Hemoglobin Concent 31.0 g/dl RDW Standard Deviation 55.6 fL RDW Coefficient of Variation 16.8 % Platelet Count 367 K/uL Mean Platelet Volume 8.0 fL Nucleated RBC Absolute Count (auto) 0.02 K/uL Nucleated Red Blood Cells % 0.2 % Iron Level 35 mcg/dl Transferrin 239 mg/dl Transferrin % Saturation 10 % Ferritin 80.1 ng/ml Vitamin B12 Level 1283 pg/mL Folate 19.54 ng/mL Free Thyroxine 1.15 ng/dl Test 06/24/18 07:16 Bedside Glucose 169 mg/dl Assessment and Plan 62yo female with history of CAD s/p CABG in 1999, HTN, T2DM, morbid obesity, long-standing asthma, prior tobacco dependence (50 pack years), and recent month -long hospitalization at [facility] in [place] for Kath' s gangrene of the right thigh/groin who presents as a transfer from [facility] due to concerns for ACS and acute CHF. 1. question of ACS in the setting of known CAD - had mild troponin elevation at [facility], and troponins were repeated here overnight with peak of 0.1. I believe the troponin elevation is from demand ischemia rather than ACS. Demand ischemia is likely from acute CHF. Dr. Fisher to see. Will continue her chronic CAD meds including BB, asa, plavix, statin, etc. 2. acute CHF - suspect diastolic in nature. Ongoing clinically and radiographically but, oddly, she is able to lay flat fairly comfortably this am and o2 sats without supplemental o2 are high 90s. [id number] gave lasix 20mg IV x 1 this AM with already good diuresis. Will give additional 40mg this afternoon. Pt reports her dry weight is about 200 pounds. Current weight is 213 pounds. Fluid restrict to 1500cc/day. Try to improve blood albumin level w/ supplements. Await formal echo reading. Ok to use BIPAP at HS - this may help her rest better and prevent PND. 3. edema - likely due to #2. Edema is assymetric - worse on right. Dopplers at [facility] were neg for DVT although right leg was suboptimally imaged. Awaiting repeat doppler here. 4. recent Kath's gangrene of right groin/thigh - unfortunately the Wound Care Team will not be available until this coming Tuesday. In meantime will place iodoform dressings in the wound bed and cover w/ sterile dressings. Dr. Bhakta's consult appreciated. Add MVI/zinc/Vit C to help promoted wound healing. Will add boost glucose control as well. 5. T2DM - lantus 15 units at HS; novolog correction factor 30 and carb ratio 1: 10. Controlled. 6. h/o asthma - suspect she likely has COPD due to long-standing tobacco dependence - not in exacerbation at this time. Nebs/inhalers prn for symptoms. I believe her current pulmonary symptoms are from CHF and not COPD/asthma. 7. morbid obesity - BMI 41. 8. HTN - controlled; continue home medications. 9. CAD - continue BB, statin, asa, plavix. See discussion above. 10. hyperlipidemia - statin. 11. DVT proph - lovenox once daily. 12. abnormal ABG at [facility] earlier today - repeat gases here are acceptable. 13. hypoalbuminemia / protein calorie malnutrition - MVI, vit C, zinc, and boost glucose control. 14. anemia - likely due to chronic disease - b12, folate wnl. Iron studies most c/w ACD but could have low grade Fe def. Will supplement. If Hb drops to <8 consider transfusion. 15. FEN - AHA/DM diet; saline lock; BMP at noon today and tomorrow am. Fluid restrict. 16. low-normal BPs at times - check cortisol level. 17. c diff colitis - cont vancomycin; records from [facility] state her stop date is 06/30/18. Cont lactinex TID. added colestipol 1gm BID. Contract precautions. PT, OT evals updated oob to chair BID Continued [facility] stay due to: ambulation difficulties, multiple IV medications needed Discharge planning: uncertain
[2018-06-24] MEDS: POTASSIUM CHLORIDE 20 MEQ TABCR PO SCH ×2 (10:40→21:14)
[2018-06-24] MEDS: FERROUS SULFATE 325 MG TAB PO SCH ×2 (10:40→21:11)
--- NOTE | 2018-06-24 11:50 | SURGICAL CONSULTATION ---
DATE OF CONSULTATION: 06/24/2018 REFERRING PHYSICIAN: Josue Jean MD REASON FOR CONSULTATION: Right thigh and inguinal wound. HISTORY OF PRESENT ILLNESS: Ms. Barbour is a 62-year-old female with multiple issues including coronary artery disease and coronary artery bypass, who developed Kath gangrene, was hospitalized for a month at [facility]. She was just discharged a few days ago to her home in [place] and has a wound VAC on her right thigh. She became more short of breath and was complaining of some chest tightness. She also had bilateral lower extremity edema. She went to [facility] but was transferred here for more intensive management. She underwent a CT of the chest, which showed no evidence of pulmonary embolism. She had no evidence of deep vein thrombosis, with a suboptimal study. She states that her breathing has improved. When I saw her this morning, she had just gotten off her CPAP. Her was at the bedside. PAST MEDICAL HISTORY: 1. Recent bout of Clostridium difficile colitis. 2. Kath's gangrene, right thigh. 3. Morbid obesity. 4. History of cigarette smoking, quit recently. 5. Hyperlipidemia. 6. Coronary artery disease. 7. Hypertension. 8. Diabetes mellitus. PAST SURGICAL HISTORY: 1. Percutaneous transluminal angioplasty. 2. Coronary artery bypass grafting. 3. Bilateral cataract extraction. 4. Multiple debridements for Kath's gangrene, right thigh. 5. Appendectomy. 6. Cholecystectomy. 7. Hysterectomy. 8. Tubal ligation. MEDICATIONS: Multiple, please see chart. ALLERGIES: INCLUDE AMPICILLIN, CODEINE, AND SULFA. SOCIAL HISTORY: Patient lives at [place]. Smoked a pack of cigarettes a day, states she just quit last month. She does not use alcohol. She lives with her . 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 MEDICATIONS: Patient has 3 children who are healthy. FAMILY MEDICAL HISTORY: Her mother and father both had acquired immunodeficiency syndrome. She had a sister who at age 45 and had diabetes mellitus. She does have a daughter who has early onset diabetes in her 20s. Her mother at age 63. She had a brother who at age 67. Father and her brother had hypertension and coronary artery disease. REVIEW OF SYSTEMS: Please see the history of present illness. The patient has complained of increased edema and increased shortness of breath with her legs feeling "heavy." She has also been fatigued, has had some night sweats. She has had no visual or auditory changes and denies pharyngeal symptoms. She does have chest pain with orthopnea, with tightness as described in the history of present illness. She does have edema of her lower extremities, which has worsened. She complained of some diarrhea but did have recent Clostridium difficile colitis and is on p.o. vancomycin. She denies vomiting or nausea. She denies joint swelling or pain in her extremities except for her right thigh of course. She denies palpitations. She has had no productive cough. She has been short of breath. She has had no focal deficits neurologically. Her right thigh was inspected. This wound in her right groin has good granulation tissue with some biofilm. There are only a couple of sutures that are intact. This goes down to her perineal area close to her outer labial majora on the right, also gets close to her perirectal area although not into the perirectal tissue itself. She also has diarrhea and has soiled a portion of this wound. Currently, there is iodoform gauze in her wound. She has no surrounding erythema or fluctuance. She really does not have that much pain with it either. Neurologically, patient is moving all extremities. She is slow to respond. ASSESSMENT AND PLAN: Status post multiple debridements and incisions and wound VAC therapy for her right Kath's gangrene. They did not get a good seal, which is not surprising given the patient's size. Quite frankly, I think that this wound is getting cleaned enough to consider a skin graft. At this point, I am going to switch her over to silver alginate. A wound VAC is going to be difficult due to its conformational issues being it close to the rectum and the vagina. We will get the silver alginate to help. We can get the wound care service to apply wound VAC; however, I think a silver alginate would be a good wound dressing at this point.
--- NOTE | 2018-06-24 12:13 | ECHOCARDIOGRAM REPORT ---
*NOTICE TO RECEIVING REPUBLICAN AGENCY This information is strictly Confidential and protected under [place] law. [place] law prohibits you from making any further disclosure of this information unless further disclosure is expressly permitted by the written consent of the person to whom it pertains or is authorized by law. A general authorization for the release of medical or other information is not sufficient for this purpose. Hospital accepts no responsibility if the information is made available to any other person, INCLUDING THE PATIENT. Interpretation Summary * Name: NO PONCE Study Date: 06/24/2018 07:36 AM BP: 128/68 mmHg * Patient Location: C.2E\S\E211\S\1 HR: 95 * : 1955 (M/d/yyyy) Gender: Female Height: 60 in * Age: 62 yrs Ethnicity: CA Weight: 214 lb * Ordering Physician: Josue Jean * Referring Physician: Self, Referred * Performed By: Vikki Suarez [facility] * * Reason For Study: CHF * BSA: 1.9 m2 * -- Conclusions -- * 1. Normal left ventricular size. Moderately reduced systolic function. Estimated EF 35%. Global hypokinesis. No left ventricular hypertrophy. Type 2 diastolic dysfunction. * 2. Grossly normal right ventricular size with mildly reduced systolic function. * 3. There is mild mitral regurgitation. * 4. Normal estimated right ventricular systolic pressure; 33mmHg. * 5. Technically difficult study. IV echo contrast may enhance study and allow for better interpretation of wall motion and LV systolic function. * 6. No prior study available for comparison. Procedure Details * A complete two-dimensional transthoracic echocardiogram was performed (2D, M-mode, Doppler and color flow Doppler). Left Ventricle * Normal left ventricular size. Moderately reduced systolic function. Estimated EF 35%. Global hypokinesis. No left ventricular hypertrophy. Type 2 diastolic dysfunction. Right Ventricle * The right ventricle is not well visualized. * The right ventricle is grossly normal size. * The right ventricular systolic function is reduced as assessed by tricuspid annular plane systolic excursion (TAPSE) (TAPSE <1.6 cm). Atria * The left atrial size is normal. * Right atrial size is normal. * There is no evidence of atrial septal defect, but resolution does not allow assessment for a patent foramen ovale. Mitral Valve * The mitral valve is grossly normal. * There is no mitral valve stenosis. * There is mild mitral regurgitation. Tricuspid Valve * The tricuspid valve is not well visualized. * There is no tricuspid stenosis. * There is trace tricuspid regurgitation. Aortic Valve * The aortic valve opens well. * No hemodynamically significant valvular aortic stenosis. * There is no significant aortic regurgitation. Pulmonic Valve * The pulmonary valve is inadequately visualized, but the Doppler data is adequate for interpretation. * There is no pulmonic valvular stenosis. * There is no significant pulmonary regurgitation. Great Vessels * The aortic root is normal size. * Aortic arch of normal dimension. Pericardium/Pleural * There is no pericardial effusion. Great Vessels * Normal inferior vena cava size and collapsability with sniff indicates a normal right atrial pressure of 3 mmHg MMode 2D Measurements and Calculations IVSd 1.1 cm LVIDd 4.9 cm LVIDs 4.0 cm LVPWd 1.1 cm IVS/LVPW 0.99 FS 18.9 % EDV(Teich) 112.1 ml ESV(Teich) 68.5 ml EF(Teich) 38.9 % EDV(cubed) 116.7 ml ESV(cubed) 62.3 ml EF(cubed) 46.6 % LV mass(C)d 190.0 grams LV mass(C)dI 98.9 grams/m\S\2 SV(Teich) 43.6 ml SI(Teich) 22.7 ml/m\S\2 SV(cubed) 54.4 ml SI(cubed) 28.3 ml/m\S\2 Ao root diam 2.9 cm Ao root area 6.8 cm\S\2 ACS 1.8 cm LA dimension 3.1 cm LA/Ao 1.1 LVOT diam 2.0 cm LVOT area 3.0 cm\S\2 LVAd ap4 33.5 cm\S\2 LVLd ap4 7.5 cm EDV(MOD-sp4) 120.5 ml EDV(sp4-el) 126.2 ml LVAs ap4 25.2 cm\S\2 LVLs ap4 6.8 cm ESV(MOD-sp4) 75.6 ml ESV(sp4-el) 79.6 ml EF(MOD-sp4) 37.2 % EF(sp4-el) 36.9 % LVAd ap2 33.2 cm\S\2 LVLd ap2 8.2 cm EDV(MOD-sp2) 108.6 ml EDV(sp2-el) 114.1 ml LVAs ap2 26.8 cm\S\2 LVLs ap2 7.7 cm ESV(MOD-sp2) 75.2 ml ESV(sp2-el) 79.1 ml EF(MOD-sp2) 30.7 % EF(sp2-el) 30.7 % LVLd %diff 7.8 % EDV(MOD-bp) 120.2 ml LVLs %diff 12.2 % ESV(MOD-bp) 80.5 ml EF(MOD-bp) 33.0 % SV(MOD-sp4) 44.9 ml SI(MOD-sp4) 23.3 ml/m\S\2 SV(MOD-sp2) 33.4 ml SI(MOD-sp2) 17.4 ml/m\S\2 SV(MOD-bp) 39.6 ml SI(MOD-bp) 20.6 ml/m\S\2 SV(sp4-el) 46.6 ml SI(sp4-el) 24.3 ml/m\S\2 SV(sp2-el) 35.0 ml SI(sp2-el) 18.2 ml/m\S\2 Doppler Measurements and Calculations MV E max pamela 112.2 cm/sec MV A max pamela 63.1 cm/sec MV E/A 1.8 MV P1/2t max pamela 125.1 cm/sec MV P1/2t 49.2 msec MVA(P1/2t) 4.5 cm\S\2 MV dec slope 745.4 cm/sec\S\2 MV dec time 0.17 sec Ao V2 max 127.1 cm/sec Ao max PG 6.5 mmHg Ao max PG (full) 3.3 mmHg LUIZ(V,A) 2.1 cm\S\2 LUIZ(V,D) 2.1 cm\S\2 LV V1 max PG 3.2 mmHg LV V1 max 89.0 cm/sec PA V2 max 85.4 cm/sec PA max PG 2.9 mmHg TR max pamela 272.2 cm/sec RVSP(TR) 32.6 mmHg RAP systole 3.0 mmHg
[2018-06-24 12:28] LABS: CALCIUM 8.6 mg/dl (8.5-10.1); CREATININE 1.08 mg/dl (0.60-1.20); POTASSIUM 4.2 mmol/L (3.5-5.1)
--- NOTE | 2018-06-24 12:41 | DIAGNOSTIC IMAGING REPORT ---
R VENOUS DOPP LOWER EXT UNILAT CLINICAL HISTORY: 62 years-old Female presenting with RLE EDEMA, PROLONGED HOSPITALIZATION; EVAL FOR DVT. TECHNIQUE: Real-time grayscale and color and spectral Doppler ultrasound imaging of the veins of the right lower extremity was performed. Compression and augmentation were also utilized. COMPARISON: 06/22/2018. FINDINGS: RIGHT: Common femoral vein: Patent. Greater saphenous vein: Patent. Deep femoral vein: Patent. Femoral vein: Patent. Popliteal vein: Patent. Calf veins: Patent. Other: Subcutaneous edema and skin thickening noted throughout the lower extremity. IMPRESSION: No evidence of deep venous thrombosis. Electronically signed by: Tho Hill M.D. 06/24/2018 12:39 PM Dictated Date/Time: 06/24/2018 12:39 PM
[2018-06-24] MEDS ORDERED: FUROSEMIDE INJ 40 MG in SYRINGE 0 ML IV ONE (15:00)
[2018-06-24] MEDS ORDERED: BOOST GLUCOSE CONTROL VANILLA PO SCH ×2 (16:45)
[2018-06-24] MEDS: BOOST GLUCOSE CONTROL VANILLA PO SCH (17:19)
[2018-06-24] MEDS: ATORVASTATIN 40 MG TAB PO SCH (21:14)
[2018-06-24] MEDS: GABAPENTIN 100 MG CAP PO SCH (21:15)
[2018-06-24] MEDS: PRIMIDONE 50 MG TAB PO SCH (21:15)
[2018-06-24] MEDS: INSULIN GLARGINE SOLOSTAR 100 UNITS/ML 3 ML PEN SC SCH (21:21)
--- NOTE | 2018-06-24 22:39 | CARDIOLOGY CONSULTATION ---
DATE OF CONSULTATION: 06/24/2018 CONSULTATION REQUESTED BY: Josue Jean MD REASON FOR CONSULTATION: Elevated troponin, cardiomyopathy, multivessel coronary artery disease. 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 diff infection. She has been home with a wound VAC in place and earlier this week and reportedly developed acute shortness of breath with some associated chest tightness, which prompted her to present to the [place] ED. There she underwent workup; which included a CTA, which was negative for PE; lower extremity duplex, which was negative for DVT. She had a troponin that was minimally elevated that peaked at 0.06. At outside hospital, she was treated with IV diuretics. She initially had a blood gas there that was remarkable for a respiratory acidosis with a pH down to 7.18 requiring use of BiPAP. On arrival here, was comfortable on room air but did endorse intermittent dyspnea overnight yesterday. She had repeat troponin here, which was positive at 1.17 and has trended down since that time. Initial presenting EKG showed sinus rhythm with old septal infarct, but no dynamic ST abnormalities. Today, she had an echocardiogram, which showed moderate LV dysfunction with an EF of around 35%. Echo reported as global LV dysfunction. No significant valvular abnormalities. Estimated PA and RA pressures within normal limits. PAST MEDICAL HISTORY: 1. Coronary artery disease status post 3-vessel CABG in 1999. -- Prior PCI with POBA to OM1 in November 2016. -- Prior PCI with drug-eluting stent to ramus and into the left main circumflex and OM1 in June [address] Syed at [facility]. -- CABG was in 1999 and vein graft to OM and ramus known to be occluded. 2. Type 2 diabetes. 3. Hypertension. 4. Ongoing tobacco use. 5. Hyperlipidemia. 6. Severe GERD. 7. Mild lower extremity peripheral arterial disease. 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 9. Morbid obesity. 10. Recent C. diff colitis. PAST SURGICAL HISTORY: Bilateral cataracts, multiple debridements for Kath's gangrene, hysterectomy in 1998, appendectomy in 1996, cholecystectomy in 1995, tubal ligation and CABG as discussed above. FAMILY HISTORY: Significant for multiple relatives with diabetes, also had coronary artery disease in father, mother, and multiple siblings. SOCIAL HISTORY: She is an ongoing smoker, has smoked 1 pack per day for 50 years. She is with 3 children. She lives with her in [place]. She is retired. 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 ALLERGIES: INCLUDE AMPICILLIN, CODEINE, SULFA. HOME MEDICATIONS: Aspirin, atorvastatin, clopidogrel, cyclobenzaprine, insulin 70/30, metoprolol, and pantoprazole. REVIEW OF SYSTEMS: Otherwise, negative than listed in HPI. PHYSICAL EXAMINATION: VITAL SIGNS: Temperature 36.8, pulse 98, blood pressure 134/71. She is satting 100% on 3 L. GENERAL: The patient appears chronically ill, obese, in no acute distress. HEENT: Her sclerae anicteric. Her oropharynx is clear. Her mucous membranes are moist. NECK: Supple. She has no significant jugular venous distention. LUNG: She has few crackles at her left lower base, but otherwise clear. CARDIAC: She has a regular rate and rhythm with no appreciable murmurs. ABDOMEN: Soft and nontender but obese. EXTREMITIES: Warm. She has a 1+ lower extremity edema on the right greater than left. She has a dressed large wound over her right inner thigh, looked at yesterday and she has pink granulation tissue with no surrounding erythema or induration. NEUROLOGIC: Grossly nonfocal. PSYCHIATRIC: Alert and appropriate. LABORATORY DATA: Sodium 137, potassium 4.3, BUN of 12, creatinine of 1.18. TSH of 4.67. Troponin 0.117, 0.092, and 0.07. BNP at outside hospital was greater than 8000. Chest x-ray here showed cardiomegaly with mild congestive heart failure. Repeat lower extremity duplex showed no evidence of DVT. IMPRESSION AND PLAN: 1. Severe multivessel coronary artery disease/elevated troponin. 2. Acute systolic heart failure/ischemic cardiomyopathy. 3. Open right thigh wound post Kath's gangrene. 4. Type 2 diabetes on insulin. 5. Anemia. 6. Hypertension/hyperlipidemia. Ms. Angle is here after a prolonged hospitalization in the setting of Kath's gangrene requiring multiple debridements, now with healing right inner thigh wound. She presented to an outside hospital recently this week with new chest discomfort and shortness of breath and was found to have signs of pulmonary and systemic vascular congestion along with mildly elevated troponin. Repeat echocardiogram today showed moderate LV dysfunction with what appeared to be more anterior/apical wall motion abnormalities per my review. At present, the patient's congestion appears to be improving following multiple doses of IV diuretics. She appears well perfused and is in no distress. Her troponin has peaked and she is having no additional chest pain. Suspicion that the primary event causing all the patient's current symptoms was recurrent ACS is relatively low. However, in the setting of known multivessel disease including left main stenting and her minimally elevated troponin with presumed to be new LV dysfunction, feel that further workup is warranted. We discussed possible catheterization on Tuesday via left radial artery, which patient and are agreeable. In the interim, would continue daily IV diuretics. Continue dual antiplatelet therapy with aspirin and Plavix. As it is more than 3 days out from initial event, okay to hold off on additional heparin at this time. Otherwise, would continue current beta malcolm and statins. Plan to start PARAM inhibitor. We will continue to follow while in the hospital. Thank you for consultation. Please contact with any questions. NARGIS
[2018-06-25] VITALS (11 sets, daily range): BP systolic 97–114; BP diastolic 55–67; PULSE 82–99; TEMP 36.4–36.7; O2SAT 88–100
[2018-06-25] MEDS: RASPBERRY SYRUP 5 ML UDP PO SCH ×3 (05:48→17:36)
[2018-06-25] MEDS: VANCOMYCIN HCL 125 MG/2.5ML SOLN PO SCH ×3 (05:48→17:37)
[2018-06-25] MEDS: ALBUT/IPRATROP 3MG/0.5MG NEB 3 ML VIAL INH SCH ×4 (06:55→19:21)
[2018-06-25 07:58] LABS: HEMATOCRIT 26.4 % (37-47); HEMOGLOBIN 8.2 g/dL (12.0-16.0); MEAN CORPUSCULAR HEMOGLOBIN 28.3 pg (25-34); MEAN CORPUSCULAR HGB CONC 31.1 g/dl (32-36); MEAN PLATELET VOLUME 8.1 fL (7.4-10.4); PLATELET COUNT 327 K/uL (130-400); RED CELL DISTRIBUTION WIDTH CV 17.2 % (11.5-14.5); RED CELL DISTRIBUTION WIDTH SD 56.7 fL (36.4-46.3); WHITE BLOOD COUNT 5.63 K/uL (4.8-10.8)
[2018-06-25] MEDS: BOOST GLUCOSE CONTROL VANILLA PO SCH ×2 (08:17→17:30)
[2018-06-25] MEDS: LACTOBACILLUS ACIDOPHILUS (FLORANEX) TAB PO SCH ×3 (08:18→17:29)
[2018-06-25] MEDS: PANTOprazole SOD 40 MG TAB PO SCH (08:18)
[2018-06-25] MEDS: CEROVITE ADV FORMULA TAB PO SCH (08:18)
[2018-06-25] MEDS: ZINC SULFATE 220 MG CAP PO SCH (08:19)
[2018-06-25] MEDS: CLOPIDOGREL BISULFATE 75 MG TAB PO SCH (08:19)
[2018-06-25] MEDS: ASPIRIN 81 MG ECTAB PO SCH (08:19)
[2018-06-25] MEDS: ASCORBIC ACID 500 MG TAB PO SCH (08:19)
[2018-06-25] MEDS: POTASSIUM CHLORIDE 20 MEQ TABCR PO SCH ×2 (08:20→21:04)
[2018-06-25] MEDS: METOPROLOL TARTRATE 50 MG TAB PO SCH ×2 (08:20→21:05)
[2018-06-25] MEDS: FERROUS SULFATE 325 MG TAB PO SCH ×2 (08:20→21:03)
[2018-06-25 08:24] LABS: CALCIUM 8.6 mg/dl (8.5-10.1); CREATININE 1.08 mg/dl (0.60-1.20)
[2018-06-25] MEDS: INSULIN ASPART 100 UNITS/ML 3 ML PEN SC SCH ×4 (08:24→21:12)
[2018-06-25] MEDS: INSULIN GLARGINE SOLOSTAR 100 UNITS/ML 3 ML PEN SC SCH ×2 (08:24→21:11)
[2018-06-25] MEDS ORDERED: LISINOPRIL 5 MG TAB PO SCH (09:00)
[2018-06-25] MEDS: COLESTIPOL HCL 1 GM TAB PO SCH ×3 (09:31→21:06)
[2018-06-25] MEDS: FUROSEMIDE INJ 40 MG in SYRINGE 0 ML IV SCH (09:31)
--- NOTE | 2018-06-25 10:04 | Progress Note ---
Subjective Date of Service: Jun 25, 2018. Subjective Pt evaluation today including: conversation w/ patient, conversation w/ family ( at bedside), physical exam, chart review, lab review, review of studies (doppler, right leg; echo), review of inpatient medication list Pain: denies PO Intake: ate good breakfast Voiding: dyson catheter in place tele - NSR overnight she feels better she slept better last pm not as much PND, orthopnea, or dyspnea diarrhea persists but "not as bad" no abd pain ambulating to commode not as anxious today Review of Systems Constitutional: No fever Respiratory: No cough Cardiac: + edema, No chest pain, No orthopnea, No PND Abdomen: No pain Objective Vital Signs Date Time Temp Pulse Resp B/P (MAP) Pulse Ox O2 Delivery O2 Flow Rate FiO2 06/25/18 08:03 36.4 88 18 114/58 (76) 99 06/25/18 08:00 100 Nasal Cannula 3.0 06/25/18 06:55 99 20 88 Nasal Cannula 3.0 06/25/18 05:19 36.7 87 22 97/67 (77) 99 Nasal Cannula 2.5 06/24/18 23:12 36.8 95 20 107/52 (70) 100 Nasal Cannula 2.0 06/24/18 20:00 Nasal Cannula 3.0 06/24/18 19:55 36.6 101 18 117/67 (84) 96 Nasal Cannula 6.0 100 06/24/18 19:22 100 20 98 Nasal Cannula 3.0 06/24/18 16:00 100 Nasal Cannula 3.0 06/24/18 15:46 94 22 100 Nasal Cannula 5.0 06/24/18 15:12 36.8 98 18 134/71 (92) 100 Nasal Cannula 6.0 100 06/24/18 13:40 111 22 100 Nasal Cannula 2.0 06/24/18 12:06 36.8 84 18 121/79 (93) 100 BiPAP 06/24/18 12:00 100 Nasal Cannula 3.0 06/24/18 10:46 93 22 96 Nasal Cannula 2.0 Physical Exam General Appearance: no apparent distress, + pertinent finding (sitting in chair ; looks a bit better today) ENT: pharynx normal Neck: no JVD Respiratory/Chest: no respiratory distress, no accessory muscle use, + crackles (fine, bases - improved from prior exams) Cardiovascular: regular rate, rhythm, no gallop, no murmur Abdomen: normal bowel sounds, non tender, soft, no organomegaly Extremities: + pedal edema (2+ on right, 1+ on left; right leg is larger than left leg) Neurologic/Psychiatric: alert, oriented x 3, + depressed affect Skin: + pallor Comments: musculo/skin - right leg upper thigh with dressings intact Laboratory Results Last 24 Hours Test 06/24/18 11:01 06/24/18 11:46 06/24/18 16:06 06/24/18 20:13 Bedside Glucose 236 mg/dl 219 mg/dl 301 mg/dl Sodium Level 135 mmol/L Potassium Level 4.2 mmol/L Chloride Level 100 mmol/L Carbon Dioxide Level 26 mmol/L Anion Gap 9.0 mmol/L Blood Urea Nitrogen 12 mg/dl Creatinine 1.08 mg/dl Est Creatinine Clear Calc Drug Dose 57.8 ml/min Estimated GFR () 64.6 Estimated GFR (Non- 55.8 BUN/Creatinine Ratio 10.9 Random Glucose 201 mg/dl Calcium Level 8.6 mg/dl Ammonia < 10.0 umol/L Troponin I 0.070 ng/ml Random Cortisol 27.60 mcg/dl Test 06/25/18 07:13 06/25/18 07:30 Bedside Glucose 161 mg/dl White Blood Count 5.63 K/uL Red Blood Count 2.90 M/uL Hemoglobin 8.2 g/dL Hematocrit 26.4 % Mean Corpuscular Volume 91.0 fL Mean Corpuscular Hemoglobin 28.3 pg Mean Corpuscular Hemoglobin Concent 31.1 g/dl RDW Standard Deviation 56.7 fL RDW Coefficient of Variation 17.2 % Platelet Count 327 K/uL Mean Platelet Volume 8.1 fL Sodium Level 135 mmol/L Potassium Level 4.0 mmol/L Chloride Level 100 mmol/L Carbon Dioxide Level 27 mmol/L Anion Gap 8.0 mmol/L Blood Urea Nitrogen 13 mg/dl Creatinine 1.08 mg/dl Est Creatinine Clear Calc Drug Dose 57.2 ml/min Estimated GFR () 64.6 Estimated GFR (Non- 55.8 BUN/Creatinine Ratio 11.8 Random Glucose 138 mg/dl Calcium Level 8.6 mg/dl Magnesium Level 2.0 mg/dl Assessment and Plan 62yo female with history of CAD s/p CABG in 1999, HTN, T2DM, morbid obesity, long-standing asthma, prior tobacco dependence (50 pack years), and recent month -long hospitalization at [facility] in [place] for Kath' s gangrene of the right thigh/groin who presented as a transfer from [facility] due to concerns for ACS and acute CHF. 1. question of ACS in the setting of known CAD - had mild troponin elevation at [facility], and troponins were repeated here with peak of 0.1. I believe the troponin elevation was from demand ischemia rather than ACS. Demand ischemia likely from acute CHF. Will continue her chronic CAD meds including BB, asa, plavix, statin, etc. 2. acute systolic CHF - improving with diuresis. Continue lasix 40mg IV daily ; could consider BID dosing if necessary. Pt reports her dry weight is about 200 pounds. Fluid restrict to 1500cc/day. Try to improve blood albumin level w/ supplements. Continue BB; adding low-dose PARAM (lisinopril 5mg daily). Possible heart cath tomorrow by Dr. Fisher to exclude ischemic cardiomyopathy/ CAD as cause of new onset CHF. We are awaiting records from [facility] to see what prior echo showed. Daily BMP while here. 3. edema - likely due to #2. Edema is assymetric - worse on right. Dopplers of RLE neg for DVT. 4. recent Kath's gangrene of right groin/thigh - unfortunately the Wound Care Team will not be available until this coming Tuesday. In meantime place iodoform dressings in the wound bed and cover w/ sterile dressings. Dr. Bhakta's consult appreciated. Added MVI/zinc/Vit C to help promoted wound healing. Added boost glucose control as well. 5. T2DM - uncontrolled; increase lantus to 20 units BID. Tighten novolog correction factor and carb ratio. 6. h/o asthma - suspect she likely has COPD due to long-standing tobacco dependence - not in exacerbation at this time. Nebs/inhalers prn for symptoms. 7. morbid obesity - BMI 41. 8. HTN - controlled; continue home medications. Adding low-dose PARAM for systolic CHF. 9. CAD - continue BB, statin, asa, plavix. See discussion above. 10. hyperlipidemia - statin. 11. DVT proph - lovenox once daily. 12. hypoalbuminemia / protein calorie malnutrition - MVI, vit C, zinc, and boost glucose control. 13. anemia - likely due to chronic disease - b12, folate wnl. Iron studies most c/w ACD but could have low grade Fe def. Will supplement. If Hb drops to <8 consider transfusion. 14. FEN - AHA/DM diet; saline lock. Fluid restrict 1500cc/day. BMP am. 15. low-normal BPs at times - checked cortisol level and wnl. 16. c diff colitis - cont vancomycin; records from [facility] state her stop date is 06/30/18. Cont lactinex TID. added colestipol 1gm BID but will increase to TID dosing given her frequent, ongoing diarrhea. Contract precautions. 17. h/o tobacco dependence - quit 1 month ago. PT, OT kelly updated once again at bedside oob to chair BID Continued [facility] stay due to: voiding difficulties, ambulation difficulties, multiple IV medications needed, other (probable need for heart cath) Discharge planning: uncertain
--- NOTE | 2018-06-25 13:25 | Cardiology Follow-Up ---
Subjective Subjective Date of Service: Jun 25, 2018. Pt evaluation today including: conversation w/ patient, conversation w/ family , physical exam, chart review, lab review, review of studies, review of inpatient medication list Additional Details: Breathing improved this morning. No chest pain. No other new complaints. Review of Systems Constitutional: No fever Respiratory: No cough Cardiac: + edema, No chest pain, No orthopnea, No PND Abdomen: No pain Objective Vital Signs Last Vital Signs Documentation Date Time Temp Pulse Resp B/P (MAP) Pulse Ox O2 Delivery O2 Flow Rate FiO2 06/25/18 12:00 89 20 98/56 (70) 99 Nasal Cannula 3.0 06/25/18 08:03 36.4 06/24/18 19:55 100 Physical Exam: General Appearance: no apparent distress, + pertinent finding (sitting in chair ; looks a bit better today) ENT: pharynx normal Neck: no JVD Respiratory/Chest: no respiratory distress, no accessory muscle use, + crackles (fine, bases - improved from prior exams) Cardiovascular: regular rate, rhythm, no gallop, no murmur Abdomen: normal bowel sounds, non tender, soft, no organomegaly Extremities: + pedal edema (improved from prior, 1+ on right) Neurologic/Psychiatric: alert, oriented x 3, + depressed affect Skin: + pallor Assessment and Plan 1. Multi-vessel CAD/mildly elevated troponin 2. Acute systolic heart failure/ICM 3. RLE wound post Kath's gangrene debridement 4. DM2 5. Anemia Good diuresis yesterday with BID IV lasix. Improved breathing, LE edema. Renal function stable No recurrent chest pain. -- Plan for [facility] tomorrow to eval LM/circumflex stents and GRIMES-LAD -- procedure via left wrist; procedure likely in afternoon. -- Agree with continued daily IV diuretics -- Continue current DAPT -- Continue current beta-malcolm; agree with starting PARAM -- Continue statin Continued [facility] stay due to: voiding difficulties, ambulation difficulties, multiple IV medications needed, other (probable need for heart cath) Discharge planning: uncertain Medications: Current Inpatient Medications Medications (Trade) Dose Ordered Sig/Graham Route Start Time Stop Time Status Last Admin Dose Admin Enoxaparin Sodium (Lovenox Inj) 40 mg HS SC 06/23/18 22:00 07/23/18 21:59 06/24/18 21:16 40 MG Acetaminophen (Tylenol Tab) 650 mg Q4H PRN PO 06/23/18 17:45 07/23/18 17:44 Magnesium Hydroxide (Milk Of Magnesia Susp) 30 ml Q12H PRN PO 06/23/18 17:45 07/23/18 17:44 Ondansetron HCl (Zofran Inj) 4 mg Q6H PRN IV 06/23/18 17:45 07/23/18 17:44 Nitroglycerin (Nitrostat Tab) 0.4 mg UD PRN SL 06/23/18 17:45 07/23/18 17:44 Aspirin (Ecotrin Tab) 81 mg QAM PO 06/24/18 09:00 07/24/18 08:59 06/25/18 08:19 81 MG Atorvastatin Calcium (Lipitor Tab) 40 mg HS PO 06/23/18 21:00 07/23/18 20:59 06/24/18 21:14 40 MG Clopidogrel Bisulfate (plAVix TAB) 75 mg DAILY PO 06/24/18 09:00 07/24/18 08:59 06/25/18 08:19 75 MG Metoprolol Tartrate (Lopressor Tab) 50 mg BID PO 06/23/18 21:00 07/23/18 20:59 06/25/18 08:20 50 MG Pantoprazole Sodium (Protonix Tab) 40 mg QAM PO 06/24/18 09:00 07/24/18 08:59 06/25/18 08:18 40 MG Vancomycin HCl (Vancomycin Oral Soln) 125 mg Q6 PO 06/23/18 18:30 07/03/18 18:29 06/25/18 12:14 125 MG Lactobacillus Acidophilus (Floranex Tab) 4 tab TIDM PO 06/24/18 07:30 07/24/18 07:29 06/25/18 12:15 4 TAB Insulin Aspart (novoLOG ASPART) SLIDING SCALE G... ACHS SC 06/23/18 21:00 07/23/18 20:59 06/25/18 12:14 5 UNITS Primidone (Mysoline Tab) 50 mg HS PO 06/23/18 21:00 07/23/18 20:59 06/24/18 21:15 50 MG Gabapentin (Neurontin Cap) 200 mg HS PO 06/23/18 21:00 07/23/18 20:59 06/24/18 21:15 200 MG Tramadol HCl (Ultram Tab) 50 mg Q6H PRN PO 06/23/18 18:00 07/23/18 17:59 Glucose (Glucose 40% Gel) 15-30 GRAMS 15 GRAMS... UD PRN PO 06/23/18 18:30 07/23/18 18:29 Glucose (Glucose Chew Tab) 4-8 Tablets 4 Tabl... UD PRN PO 06/23/18 18:30 07/23/18 18:29 Dextrose (Dextrose 50% 50ML Syringe) 25-50ML 25ML FOR ... UD PRN IV 06/23/18 18:30 07/23/18 18:29 Glucagon (Glucagon Inj) 1 mg UD PRN IM 06/23/18 18:30 07/23/18 18:29 Carbohydrates (Carbohydrates For Hypoglycemia) 15-30 GRAMS 15 grams if BSG 54-69... UD PRN PO 06/23/18 18:30 07/23/18 18:29 Raspberry (Raspberry Syrup 5ml Cup) 5 ml Q6 PO 06/23/18 18:30 07/07/18 18:29 06/25/18 12:14 5 ML Albuterol/ Ipratropium (Duoneb) 3 ml QIDR INH 06/24/18 08:00 07/24/18 07:59 06/25/18 11:02 3 ML Multivitamins/ Minerals (Multivitamin W/ Minerals Tab) 1 tab QAM PO 06/25/18 09:00 07/25/18 08:59 06/25/18 08:18 1 TAB Zinc Sulfate (Zinc Sulfate Cap) 220 mg QAM PO 06/25/18 09:00 07/25/18 08:59 06/25/18 08:19 220 MG Ascorbic Acid (Vitamin C Tab) 500 mg QAM PO 06/25/18 09:00 07/25/18 08:59 06/25/18 08:19 500 MG Ferrous Sulfate (Feosol Tab) 325 mg BID PO 06/24/18 09:45 07/24/18 09:44 06/25/18 08:20 325 MG Potassium Chloride (Klor-Con Tab) 20 meq BID PO 06/24/18 09:45 07/24/18 09:44 06/25/18 08:20 20 MEQ Enteral Nutritional Formula (Boost Glucose Control) 1 can BIDM PO 06/24/18 16:45 07/24/18 16:44 06/25/18 08:17 1 CAN Furosemide 40 mg/ Syringe 4 ml @ 4 mls/min QAM IV 06/25/18 09:00 07/25/18 08:59 06/25/18 09:31 4 MLS/MIN Lisinopril (Zestril Tab) 5 mg QAM PO 06/25/18 09:00 07/25/18 08:59 06/25/18 08:18 5 MG Insulin Glargine (Lantus Solostar Pen) 20 units BID SC 06/25/18 09:00 07/23/18 20:59 06/25/18 08:24 20 UNITS Colestipol HCl (Colestid Tab) 1 gm TID@1000,1500,2200 PO 06/25/18 15:00 07/25/18 14:59 Lab Results: 06/25/18 07:30 06/25/18 07:30 Test 06/25/18 07:30 06/25/18 11:29 Red Blood Count 2.90 M/uL (4.2-5.4) Mean Corpuscular Volume 91.0 fL (80-100) Mean Corpuscular Hemoglobin 28.3 pg (25-34) Mean Corpuscular Hemoglobin Concent 31.1 g/dl (32-36) RDW Standard Deviation 56.7 fL (36.4-46.3) RDW Coefficient of Variation 17.2 % (11.5-14.5) Mean Platelet Volume 8.1 fL (7.4-10.4) Anion Gap 8.0 mmol/L (3-11) Est Creatinine Clear Calc Drug Dose 57.2 ml/min Estimated GFR () 64.6 Estimated GFR (Non- 55.8 BUN/Creatinine Ratio 11.8 (10-20) Calcium Level 8.6 mg/dl (8.5-10.1) Magnesium Level 2.0 mg/dl (1.8-2.4) Bedside Glucose 206 mg/dl (70-90)
[2018-06-25] MEDS: ONDANSETRON INJ 2 MG/ML 2 ML VIAL IV PRN (14:13)
[2018-06-25] MEDS: ATORVASTATIN 40 MG TAB PO SCH (21:05)
[2018-06-25] MEDS: PRIMIDONE 50 MG TAB PO SCH (21:06)
[2018-06-25] MEDS: GABAPENTIN 100 MG CAP PO SCH (21:06)
[2018-06-25] MEDS: ENOXAPARIN 40 MG/0.4 ML SYR SC SCH (21:07)
[2018-06-26] VITALS (19 sets, daily range): BP systolic 83–119; BP diastolic 39–73; PULSE 72–97; TEMP 36.6–37; O2SAT 93–99
[2018-06-26] MEDS: RASPBERRY SYRUP 5 ML UDP PO SCH ×5 (00:34→23:49)
[2018-06-26] MEDS: VANCOMYCIN HCL 125 MG/2.5ML SOLN PO SCH ×5 (00:34→23:49)
[2018-06-26 06:29] LABS: HEMATOCRIT 26.2 % (37-47); MEAN CORPUSCULAR HEMOGLOBIN 27.8 pg (25-34); MEAN CORPUSCULAR HGB CONC 30.5 g/dl (32-36); MEAN PLATELET VOLUME 7.8 fL (7.4-10.4); NUCLEATED RED BLOOD CELL ABS 0.02 K/uL (0-0); PLATELET COUNT 285 K/uL (130-400); RED CELL DISTRIBUTION WIDTH CV 17.1 % (11.5-14.5); WHITE BLOOD COUNT 5.64 K/uL (4.8-10.8)
[2018-06-26] MEDS: ALBUT/IPRATROP 3MG/0.5MG NEB 3 ML VIAL INH SCH ×4 (06:59→19:02)
[2018-06-26 07:00] LABS: CALCIUM 8.5 mg/dl (8.5-10.1); CREATININE 1.29 mg/dl (0.60-1.20)
[2018-06-26] MEDS: INSULIN ASPART 100 UNITS/ML 3 ML PEN SC SCH ×4 (07:00→21:00)
[2018-06-26] MEDS: BOOST GLUCOSE CONTROL VANILLA PO SCH ×2 (07:30→17:03)
[2018-06-26] MEDS: METOPROLOL TARTRATE 50 MG TAB PO SCH ×2 (09:00→21:01)
[2018-06-26] MEDS: FUROSEMIDE INJ 40 MG in SYRINGE 0 ML IV SCH (09:27)
[2018-06-26] MEDS: CLOPIDOGREL BISULFATE 75 MG TAB PO SCH (09:27)
[2018-06-26] MEDS: ZINC SULFATE 220 MG CAP PO SCH (09:28)
[2018-06-26] MEDS: ASCORBIC ACID 500 MG TAB PO SCH (09:28)
[2018-06-26] MEDS: CEROVITE ADV FORMULA TAB PO SCH (09:29)
[2018-06-26] MEDS: LACTOBACILLUS ACIDOPHILUS (FLORANEX) TAB PO SCH ×3 (09:29→17:04)
[2018-06-26] MEDS: LISINOPRIL 2.5 MG TAB PO SCH (09:29)
[2018-06-26] MEDS: PANTOprazole SOD 40 MG TAB PO SCH (09:29)
[2018-06-26] MEDS: ASPIRIN 81 MG ECTAB PO SCH (09:29)
[2018-06-26] MEDS: COLESTIPOL HCL 1 GM TAB PO SCH ×3 (09:30→21:55)
[2018-06-26] MEDS: POTASSIUM CHLORIDE 20 MEQ TABCR PO SCH ×2 (09:31→21:00)
[2018-06-26] MEDS: INSULIN GLARGINE SOLOSTAR 100 UNITS/ML 3 ML PEN SC SCH ×2 (09:35→21:06)
[2018-06-26] MEDS: FERROUS SULFATE 325 MG TAB PO SCH ×2 (09:45→20:59)
--- NOTE | 2018-06-26 10:45 | Progress Note ---
Subjective Date of Service: Jun 26, 2018. Subjective Pt evaluation today including: conversation w/ patient, conversation w/ family ( at bedside), physical exam, chart review, lab review, review of studies , conversation w/ benefits sales consultant (wound care nurse), review of inpatient medication list Pain: right groin only PO Intake: npo for cath Voiding: dyson catheter in place tele - NSR overnight pt laying comfortably flat this am without orthopnea/dyspnea she feels better overall less DIEGO as well no chest pain no abd pain diarrhea improved patient expresses concerns about her that he is not eating well and that they have financial stressors at home she was quite teary eyed during the visit and expressed anxiety about everything going on Review of Systems Constitutional: No fever, No chills Respiratory: No cough, No shortness of breath Cardiac: + edema, No chest pain, No orthopnea, No PND Abdomen: + vomiting (1x - due to potassium supplement), No pain, No nausea Objective Vital Signs Date Time Temp Pulse Resp B/P (MAP) Pulse Ox O2 Delivery O2 Flow Rate FiO2 06/26/18 07:53 36.7 78 18 83/59 (67) 94 Room Air 06/26/18 06:59 75 18 93 Room Air 06/26/18 04:03 36.6 79 17 86/39 (55) 94 Room Air 06/26/18 00:20 36.7 77 22 87/61 (70) 97 Room Air 06/25/18 20:00 Room Air 06/25/18 19:21 82 20 98 Room Air 06/25/18 19:05 36.4 89 18 105/59 (74) 98 Room Air 06/25/18 16:00 100 Nasal Cannula 3.0 06/25/18 15:49 36.4 88 18 100/55 (70) 98 06/25/18 14:55 89 20 96 Room Air 06/25/18 12:00 89 20 98/56 (70) 99 Nasal Cannula 3.0 06/25/18 12:00 100 Nasal Cannula 3.0 06/25/18 11:03 90 20 96 Room Air Physical Exam General Appearance: no apparent distress, + obese, + pertinent finding (lying completely flat in bed - no orthopnea) ENT: pharynx normal Neck: no JVD Respiratory/Chest: lungs clear, no respiratory distress, no accessory muscle use, + rales (scant - bases) Cardiovascular: regular rate, rhythm, no gallop, no murmur Abdomen: normal bowel sounds, non tender, soft, no organomegaly, + pertinent finding (scars abdominal wall) Extremities: + pedal edema, + swelling (1+ on right, <1+ on left - improved), + pertinent finding (pulses 2+ b/l feet) Neurologic/Psychiatric: alert, oriented x 3, + depressed affect Skin: + pertinent finding (very large wound - up to 11cm in diameter - right groin and right anterior thigh; wound bed pink; serous drainage only; no discharge or odor or cellulitis at periphery; smaller ulceration lateral right anterior thigh ) Laboratory Results Last 24 Hours Test 06/25/18 11:29 06/25/18 16:18 06/25/18 20:15 06/26/18 06:12 Bedside Glucose 206 mg/dl 154 mg/dl 182 mg/dl White Blood Count 5.64 K/uL Red Blood Count 2.88 M/uL Hemoglobin 8.0 g/dL Hematocrit 26.2 % Mean Corpuscular Volume 91.0 fL Mean Corpuscular Hemoglobin 27.8 pg Mean Corpuscular Hemoglobin Concent 30.5 g/dl RDW Standard Deviation 56.0 fL RDW Coefficient of Variation 17.1 % Platelet Count 285 K/uL Mean Platelet Volume 7.8 fL Nucleated RBC Absolute Count (auto) 0.02 K/uL Nucleated Red Blood Cells % 0.3 % Sodium Level 138 mmol/L Potassium Level 4.0 mmol/L Chloride Level 101 mmol/L Carbon Dioxide Level 26 mmol/L Anion Gap 11.0 mmol/L Blood Urea Nitrogen 15 mg/dl Creatinine 1.29 mg/dl Est Creatinine Clear Calc Drug Dose 47.6 ml/min Estimated GFR () 52.1 Estimated GFR (Non- 45.0 BUN/Creatinine Ratio 11.4 Random Glucose 89 mg/dl Calcium Level 8.5 mg/dl Assessment and Plan 62yo female with history of CAD s/p CABG in 1999, HTN, T2DM, morbid obesity, long-standing asthma, prior tobacco dependence (50 pack years), and recent month -long hospitalization at [facility] in [place] 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 1. question of ACS in the setting of known CAD - had mild troponin elevation at [facility], and troponins were repeated here with peak of 0.1. Troponin elevation was likely from demand ischemia rather than ACS. Demand ischemia likely from acute CHF. Will continue her chronic CAD meds including BB, asa, plavix, statin, etc. Will have heart cath today, however, to exclude CAD as cause of #2. 2. acute systolic CHF - markedly improved. No orthopnea today. BPs are low and thus will hold on diuresis this AM. Fluid restrict to 1500cc/day. Try to improve blood albumin level w/ supplements. Continue BB; added low-dose PARAM (lisinopril 2.5mg daily) but we may be limited with BP. Heart cath today by Dr. Fisher to exclude ischemic cardiomyopathy/CAD as cause of new onset CHF. We are awaiting records from [facility] to see what prior echo showed. Daily BMP while here. 3. edema - likely due to #2. Edema is assymetric - worse on right. Dopplers of RLE neg for DVT. TSH was largely normal. Low albumin certainly isn't helping her edema either. 4. recent Kath's gangrene of right groin/thigh - appreciate Wound Care Team consultation. Attempts will be made to place woundvac back on the wound. Added MVI/zinc/Vit C to help promote wound healing. Added boost glucose control as well. 5. T2DM - uncontrolled but improved with adjustments in lantus + novolog. No changes today. 6. h/o asthma - suspect she likely has COPD due to long-standing tobacco dependence - not in exacerbation at this time. Nebs/inhalers prn for symptoms. 7. morbid obesity - BMI 40. 8. HTN - controlled; continue home medications. Added low-dose PARAM for systolic CHF but BP is low and we may need to hold if BPs stay <90. 9. CAD - continue BB, statin, asa, plavix. See discussion above. 10. hyperlipidemia - statin. 11. DVT proph - lovenox once daily. 12. hypoalbuminemia / protein calorie malnutrition - MVI, vit C, zinc, and boost glucose control. 13. anemia - likely due to chronic disease - b12, folate wnl. Iron studies most c/w ACD but could have low grade Fe def. Will supplement. We are approaching a point where she may need PRBCs. This likely would help BP , fatigue, and - if coronary occlusions are found - would help offload her CAD. 14. FEN - AHA/DM diet but NPO this am for cath; saline lock. Fluid restrict 1500cc/day. BMP am. 15. low-normal BPs at times - checked cortisol level and wnl. 16. c diff colitis - cont vancomycin; records from [facility] state her stop date is 06/30/18. Cont lactinex TID. Colestipol 1gm TID. Overall improving. 17. h/o tobacco dependence - quit 1 month ago. PT, OT kelly updated once again at bedside oob to chair BID suspect she will need rehab following this admission spoke with Indiana De La Cruz from case management re: pt's concerns about finances , her 's health, etc Continued [facility] stay due to: voiding difficulties, ambulation difficulties, multiple IV medications needed, other (probable need for heart cath) Discharge planning: uncertain
[2018-06-26] MEDS ORDERED: NiCARDipine HCL INJ 2.5 MG/ML 10 ML AMP ONE (14:25)
[2018-06-26] MEDS ORDERED: FENTANYL CITRATE INJ 50 MCG/1 ML 2 ML VIAL ONE ×2 (14:25→15:15)
[2018-06-26] MEDS ORDERED: MIDAZOLAM HCL 1 MG/ML 2ML VIAL ONE ×3 (14:25→15:33)
[2018-06-26] MEDS ORDERED: HEPARIN SOD (PORCINE) 1000 UNIT/ML 10 ML VIAL ONE (14:25)
[2018-06-26] MEDS ORDERED: NITROGLYCERIN/D5W 100MCG/ML 20ML SYR ONE (14:27)
--- NOTE | 2018-06-26 14:52 | Cardiology Follow-Up ---
Subjective Subjective Date of Service: Jun 26, 2018. Pt evaluation today including: conversation w/ patient, conversation w/ family , chart review, lab review, review of inpatient medication list Additional Details: No events overnight. No chest pain. Breathing stable. No events on telemetry. Review of Systems Constitutional: No fever, No chills Respiratory: No cough, No shortness of breath Cardiac: + edema Abdomen: + vomiting Objective Vital Signs Last Vital Signs Documentation Date Time Temp Pulse Resp B/P (MAP) Pulse Ox O2 Delivery O2 Flow Rate FiO2 06/26/18 11:52 36.9 92 19 116/47 (70) 98 Room Air 06/25/18 16:00 3.0 06/24/18 19:55 100 Physical Exam: General Appearance: no apparent distress, + obese ENT: pharynx normal Neck: no JVD Respiratory/Chest: lungs clear, no respiratory distress, no accessory muscle use Cardiovascular: regular rate, rhythm, no gallop, no murmur Abdomen: normal bowel sounds, soft, + pertinent finding Extremities: + pedal edema, + swelling, + pertinent finding (right groin wound dressed) Neurologic/Psychiatric: alert, oriented x 3, + depressed affect Assessment and Plan 1. Multi-vessel CAD/mildly elevated troponin 2. Acute systolic heart failure/ICM 3. RLE wound post Kath's gangrene debridement 4. DM2 5. Anemia Diuresing well. Renal function stable. No recurrent chest pain. -- Proceed with [facility] today. Further recommendations pending findings. Continued [facility] stay due to: voiding difficulties, ambulation difficulties, multiple IV medications needed, other (probable need for heart cath) Discharge planning: uncertain Medications: Current Inpatient Medications Medications (Trade) Dose Ordered Sig/Graham Route Start Time Stop Time Status Last Admin Dose Admin Enoxaparin Sodium (Lovenox Inj) 40 mg HS SC 06/23/18 22:00 07/23/18 21:59 06/25/18 21:07 40 MG Acetaminophen (Tylenol Tab) 650 mg Q4H PRN PO 06/23/18 17:45 07/23/18 17:44 Magnesium Hydroxide (Milk Of Magnesia Susp) 30 ml Q12H PRN PO 06/23/18 17:45 07/23/18 17:44 Ondansetron HCl (Zofran Inj) 4 mg Q6H PRN IV 06/23/18 17:45 07/23/18 17:44 06/25/18 14:13 4 MG Nitroglycerin (Nitrostat Tab) 0.4 mg UD PRN SL 06/23/18 17:45 07/23/18 17:44 Aspirin (Ecotrin Tab) 81 mg QAM PO 06/24/18 09:00 07/24/18 08:59 06/26/18 09:29 81 MG Atorvastatin Calcium (Lipitor Tab) 40 mg HS PO 06/23/18 21:00 07/23/18 20:59 06/25/18 21:05 40 MG Clopidogrel Bisulfate (plAVix TAB) 75 mg DAILY PO 06/24/18 09:00 07/24/18 08:59 06/26/18 09:27 75 MG Metoprolol Tartrate (Lopressor Tab) 50 mg BID PO 06/23/18 21:00 07/23/18 20:59 06/25/18 21:05 50 MG Pantoprazole Sodium (Protonix Tab) 40 mg QAM PO 06/24/18 09:00 07/24/18 08:59 06/26/18 09:29 40 MG Vancomycin HCl (Vancomycin Oral Soln) 125 mg Q6 PO 06/23/18 18:30 07/03/18 18:29 06/26/18 12:17 125 MG Lactobacillus Acidophilus (Floranex Tab) 4 tab TIDM PO 06/24/18 07:30 07/24/18 07:29 06/26/18 09:29 4 TAB Insulin Aspart (novoLOG ASPART) SLIDING SCALE G... ACHS SC 06/23/18 21:00 07/23/18 20:59 06/25/18 21:12 1 UNITS Primidone (Mysoline Tab) 50 mg HS PO 06/23/18 21:00 07/23/18 20:59 06/25/18 21:06 50 MG Gabapentin (Neurontin Cap) 200 mg HS PO 06/23/18 21:00 07/23/18 20:59 06/25/18 21:06 200 MG Tramadol HCl (Ultram Tab) 50 mg Q6H PRN PO 06/23/18 18:00 07/23/18 17:59 Glucose (Glucose 40% Gel) 15-30 GRAMS 15 GRAMS... UD PRN PO 06/23/18 18:30 07/23/18 18:29 Glucose (Glucose Chew Tab) 4-8 Tablets 4 Tabl... UD PRN PO 06/23/18 18:30 07/23/18 18:29 Dextrose (Dextrose 50% 50ML Syringe) 25-50ML 25ML FOR ... UD PRN IV 06/23/18 18:30 07/23/18 18:29 Glucagon (Glucagon Inj) 1 mg UD PRN IM 06/23/18 18:30 07/23/18 18:29 Carbohydrates (Carbohydrates For Hypoglycemia) 15-30 GRAMS 15 grams if BSG 54-69... UD PRN PO 06/23/18 18:30 07/23/18 18:29 Raspberry (Raspberry Syrup 5ml Cup) 5 ml Q6 PO 06/23/18 18:30 07/07/18 18:29 06/26/18 12:17 5 ML Albuterol/ Ipratropium (Duoneb) 3 ml QIDR INH 06/24/18 08:00 07/24/18 07:59 06/26/18 11:08 3 ML Multivitamins/ Minerals (Multivitamin W/ Minerals Tab) 1 tab QAM PO 06/25/18 09:00 07/25/18 08:59 06/26/18 09:29 1 TAB Zinc Sulfate (Zinc Sulfate Cap) 220 mg QAM PO 06/25/18 09:00 07/25/18 08:59 06/26/18 09:28 220 MG Ascorbic Acid (Vitamin C Tab) 500 mg QAM PO 06/25/18 09:00 07/25/18 08:59 06/26/18 09:28 500 MG Ferrous Sulfate (Feosol Tab) 325 mg BID PO 06/24/18 09:45 07/24/18 09:44 06/26/18 09:45 325 MG Potassium Chloride (Klor-Con Tab) 20 meq BID PO 06/24/18 09:45 07/24/18 09:44 06/26/18 09:31 20 MEQ Enteral Nutritional Formula (Boost Glucose Control) 1 can BIDM PO 06/24/18 16:45 07/24/18 16:44 06/25/18 17:30 1 CAN Furosemide 40 mg/ Syringe 4 ml @ 4 mls/min QAM IV 06/25/18 09:00 07/25/18 08:59 Future Hold 06/26/18 09:27 4 MLS/MIN Insulin Glargine (Lantus Solostar Pen) 20 units BID SC 06/25/18 09:00 07/23/18 20:59 06/26/18 09:35 10 UNITS Colestipol HCl (Colestid Tab) 1 gm TID@1000,1500,2200 PO 06/25/18 15:00 07/25/18 14:59 06/26/18 09:30 1 GM Lisinopril (Zestril Tab) 2.5 mg QAM PO 06/26/18 09:00 07/25/18 08:59 06/26/18 09:29 2.5 MG Lab Results: 06/26/18 06:12 06/26/18 06:12 Test 06/26/18 06:12 06/26/18 11:29 Red Blood Count 2.88 M/uL (4.2-5.4) Mean Corpuscular Volume 91.0 fL (80-100) Mean Corpuscular Hemoglobin 27.8 pg (25-34) Mean Corpuscular Hemoglobin Concent 30.5 g/dl (32-36) RDW Standard Deviation 56.0 fL (36.4-46.3) RDW Coefficient of Variation 17.1 % (11.5-14.5) Mean Platelet Volume 7.8 fL (7.4-10.4) Nucleated RBC Absolute Count (auto) 0.02 K/uL (0-0) Nucleated Red Blood Cells % 0.3 % Anion Gap 11.0 mmol/L (3-11) Est Creatinine Clear Calc Drug Dose 47.6 ml/min Estimated GFR () 52.1 Estimated GFR (Non- 45.0 BUN/Creatinine Ratio 11.4 (10-20) Calcium Level 8.5 mg/dl (8.5-10.1) Bedside Glucose 130 mg/dl (70-90)
--- NOTE | 2018-06-26 14:53 | Pre Sedation Assessment ---
Pre Sedation Assessment General Date of Sedation: Jun 26, 2018. Vital Signs Past 12 Hours Date Time Temp Pulse Resp B/P (MAP) Pulse Ox O2 Delivery O2 Flow Rate FiO2 06/26/18 11:52 36.9 92 19 116/47 (70) 98 Room Air 06/26/18 11:09 72 18 96 Room Air 06/26/18 08:00 Room Air 06/26/18 07:53 36.7 78 18 83/59 (67) 94 Room Air 06/26/18 06:59 75 18 93 Room Air 06/26/18 04:03 36.6 79 17 86/39 (55) 94 Room Air Review Cardiovascular: regular rate, rhythm, no edema Lungs: chest non-tender, lungs clear Pre-Sedation Airway Assessment Smoking Status: Former Smoker (1 ppd x 50 years ) Hx of Sleep Apnea: Yes Hx of difficult intubation: No Short Thick Neck: No Thyro-mental Distance: > 3 Finger Breadths Mallampati Classification: Class III ASA Classification: Class III Procedure Planning Contraindications for Sedation: None Current Medications Reviewed: Yes Notes The planned sedation has been discussed with the patient. Informed Consent was obtained. I have identified the patient, determined the appropriateness of sedation and have assessed the patient immediately prior to the procedure. All medicine(s) and interventions are by my order.
--- NOTE | 2018-06-26 15:52 | Cardiac Catheterization ---
Procedure Note Procedure Date Jun 26, 2018. Pre-Procedure Diagnosis Non STEMI AUC Score 8 Post-Procedure Diagnosis Severe CAD, Normal Intracardiac Pressures Procedure(s) Performed Coronary Angiography, Left Heart Cath, Bypass Graft Angiography [employer](s) [place] Estimated Blood Loss 10 Medication(s) Fentanyl, Heparin, Nicardipine, Nitroglycerin, Versed, Lidocaine 1% Summary of Findings Indication: NSTEMI; New LV dysfunction. Access: 6Fr right radial artery Catheters: JL4, JR4, DANIEL Findings: LM - Patent distal stent LAD - 90% ostial stenosis, 70*80% diffuse proximal in-stent restenosis, mid LAD with competitive flow form GRIMES; moderate sized 1st diagonal with mild disease. Circumflex - Patent proximal stent, distal segment and L-PDA with luminal irregularities. OM1 with patent stents and mild distal disease. Ramus - completely occluded at distal edge of previously placed stent, distal vessel fills retrograde via left to left collaterals RCA - Small non-dominant with patient prior stent in moderate diffuse in-stent restenosis Patent GRIMES-LAD. Distal LAD small without significant disease. LVEDP - 19 Arterial Closure: TR Band Summary: 1. Severe multivessel [place] coronary artery disease (unchanged from prior catheterization after POBA 11/2016). - Patent LM, proximal circumflex stent - Severe proximal LAD in-stent restenosis - Occluded ramus stent, fills distally via left to left collaterals - Patent OM1 with mild distal disease 2. Patent GRIMES - LAD. Remaining Vein grafts known to be occluded 3. Elevated intracardiac filling pressure Recommendations: Continue diuresis for acute heart failure and guideline directed medical therapy for cardiomyopathy Continue DAPT and ASCVD risk factor modification. Hemodynamics Rest Ao: 98/47/69 Final Ao: 90/42/66 LV: 92/19 Recommendations Medical therapy and/or Counseling Specimens None Radiation Exposure (mGy) 2345 Contrast (mls) 110 Fluids (cc crystalloids) 250 Drains none Anesthesia moderate Procedural Complication(s) None Disposition PCU ACC Data Cardiac Status Clinical evaluation leading to the procedure CAD Presntation: Non STEMI Anginal Classification: CCS IV Heart Failure: Yes, NYHA Class: CCS IV Cardiogenic Shock w/in 24Hrs: No Cardiac Arrest w/in 24Hrs: No Imaging studies past 6 months: Yes Stress studies past 6 months: No Closure Device Percutaneous Entry Location: Radial Closure Device: Radial Band Recommendations: Medical therapy and/or Counseling Intraprocedure Events Significant Dissection: No Perforation: No
--- NOTE | 2018-06-26 15:52 | Post Sedation Assessment ---
Post Sedation Assessment General Date of Sedation Jun 26, 2018. Vital Signs: Vital Signs Past 12 Hours Date Time Temp Pulse Resp B/P (MAP) Pulse Ox O2 Delivery O2 Flow Rate FiO2 06/26/18 11:52 36.9 92 19 116/47 (70) 98 Room Air 06/26/18 11:09 72 18 96 Room Air 06/26/18 08:00 Room Air 06/26/18 07:53 36.7 78 18 83/59 (67) 94 Room Air 06/26/18 06:59 75 18 93 Room Air 06/26/18 04:03 36.6 79 17 86/39 (55) 94 Room Air Post Procedure Recovery Score Activity: (2) Moves 4 extremities * Respiration: (2) Deep breath/cough Circulation: (2) +/-20% PreAnes Value Consciousness: (2) Fully Awake Oxygen Saturation: (2) > 92% On Room Air Discharge Sedation Level of Care: Fast Track Phase II Post Sedation Plan On clinical assessment, the patient appears to have tolerated the sedation without complications. Patient is recovering as anticipated. Patient will continue to be monitored by nursing and may be discharged when sedation discharge criteria are met per below protocol. Upon Completions of procedure and additional 15 minutes continue every 5 minute vital signs and the P.A.R. score; then discharge to a Phase I or Fast Track to Phase II per the following guidelines: * Discharge Patient to appropriate Phase II area if PAR is 8 or greater or return to pre- procedure baseline. The post - procedure orders will be as directed. * If PAR score is less than 8 or not return to pre-procedure baseline then patient will follow Phase I monitoring till PAR is reached for Phase II. The Phase I may be done in procedure room or may call to secure a Phase I area. * If naloxone or flumazenil are used for reversal, hold in Phase I for an additional 60 -120 minutes before discharge to Phase II. Please call the Sedation Physician to re-evaluate and complete post-note for discharge to Phase II area. Do NOT discharge from procedure sedation or Phase 1 until post- sedation evaluation note is complete by procedure /sedation MD Sedation Discharge Instructions to be given to the patient at discharge to home.
[2018-06-26] MEDS: ATORVASTATIN 40 MG TAB PO SCH (21:00)
[2018-06-26] MEDS: PRIMIDONE 50 MG TAB PO SCH (21:01)
[2018-06-26] MEDS: GABAPENTIN 100 MG CAP PO SCH (21:02)
[2018-06-26] MEDS: ENOXAPARIN 40 MG/0.4 ML SYR SC SCH (21:03)
[2018-06-27] VITALS (20 sets, daily range): BP systolic 94–135; BP diastolic 43–76; PULSE 76–95; TEMP 36.5–37.2; O2SAT 93–98
[2018-06-27 05:43] LABS: HEMOGLOBIN 7.8 g/dL (12.0-16.0); MEAN CELL VOLUME 91.6 fL (80-100); MEAN CORPUSCULAR HEMOGLOBIN 28.6 pg (25-34); MEAN CORPUSCULAR HGB CONC 31.2 g/dl (32-36); PLATELET COUNT 273 K/uL (130-400); RED CELL DISTRIBUTION WIDTH CV 17.2 % (11.5-14.5); RED CELL DISTRIBUTION WIDTH SD 56.2 fL (36.4-46.3); WHITE BLOOD COUNT 5.69 K/uL (4.8-10.8)
[2018-06-27] MEDS: RASPBERRY SYRUP 5 ML UDP PO SCH ×4 (06:10→23:52)
[2018-06-27] MEDS: VANCOMYCIN HCL 125 MG/2.5ML SOLN PO SCH ×4 (06:10→23:52)
[2018-06-27 06:15] LABS: CALCIUM 8.3 mg/dl (8.5-10.1); CREATININE 1.23 mg/dl (0.60-1.20)
[2018-06-27] MEDS: ALBUT/IPRATROP 3MG/0.5MG NEB 3 ML VIAL INH SCH ×4 (07:00→18:54)
[2018-06-27] MEDS ORDERED: FUROSEMIDE INJ 20 MG in SYRINGE 0 ML IV ONE ×3 (07:30→20:15)
--- NOTE | 2018-06-27 08:24 | Clinical Documentation Query ---
REJI Lopez : CLINICAL DOCUMENTATION QUERY Patient is a 62 year old female admitted for evaluation of chest tightness, elevated troponin, ongoing shortness of breath, and lower extremity edema. Noted estimated GFR range of 45-58 ml/min from 11/17/16 to present per EMR. As appropriate, consider capture of this clinical information as suggested below as this impacts accurate DRG assignment. Thank you. In your clinical opinion is this patient being managed for: ( ) Chronic kidney disease, stage 3 ( ) Not Agree (xx ) Other explanation of clinical findings (No explanation is considered a No Response) Wouldn't her GFR place her CKD stage 2? Please let me know - Reji lozano ( ) Unable to determine ( ) Need to Discuss (Phone CDS or qliq) (No discussion is considered a No Response) The medical record reflects the following clinical findings, treatment, and risk factors. Clinical Indicators: As above Treatment: Monitoring with serial chemistries Risk Factors: Age, hypertension, obesity Please clarify and document your clinical opinion in the progress notes and discharge summary. Terms such as "probable", "suspected", "likely", "questionable", "possible", or "still to be ruled out" are acceptable. IF IN AGREEMENT, YOU MUST DOCUMENT ABOVE DIAGNOSTIC STATEMENT IN DAILY PROGRESS NOTES AND DISCHARGE SUMMARY. This document is not part of the patient's record. Thank You, Daniel Stokes RN [phone]
[2018-06-27] MEDS: ZINC SULFATE 220 MG CAP PO SCH (08:34)
[2018-06-27] MEDS: PANTOprazole SOD 40 MG TAB PO SCH (08:34)
[2018-06-27] MEDS: FERROUS SULFATE 325 MG TAB PO SCH ×2 (08:34→21:00)
[2018-06-27] MEDS: CEROVITE ADV FORMULA TAB PO SCH (08:34)
[2018-06-27] MEDS: CLOPIDOGREL BISULFATE 75 MG TAB PO SCH (08:34)
[2018-06-27] MEDS: ASPIRIN 81 MG ECTAB PO SCH (08:35)
[2018-06-27] MEDS: LACTOBACILLUS ACIDOPHILUS (FLORANEX) TAB PO SCH ×3 (08:35→17:12)
[2018-06-27] MEDS: ASCORBIC ACID 500 MG TAB PO SCH (08:35)
[2018-06-27] MEDS: LISINOPRIL 2.5 MG TAB PO SCH (08:36)
[2018-06-27] MEDS: METOPROLOL TARTRATE 50 MG TAB PO SCH ×2 (08:36→21:01)
[2018-06-27] MEDS: BOOST GLUCOSE CONTROL VANILLA PO SCH ×2 (08:37→17:11)
[2018-06-27] MEDS: INSULIN ASPART 100 UNITS/ML 3 ML PEN SC SCH ×4 (08:42→21:09)
[2018-06-27] MEDS: INSULIN GLARGINE SOLOSTAR 100 UNITS/ML 3 ML PEN SC SCH ×2 (08:43→21:08)
[2018-06-27] MEDS: POTASSIUM CHLORIDE 20 MEQ TABCR PO SCH ×2 (08:43→21:00)
[2018-06-27] MEDS ORDERED: BusPIRone 15 MG TAB PO ONE (10:17)
[2018-06-27] MEDS: COLESTIPOL HCL 1 GM TAB PO SCH ×3 (10:38→21:53)
--- NOTE | 2018-06-27 12:29 | Cardiology Follow-Up ---
Subjective Subjective Date of Service: Jun 27, 2018. Pt evaluation today including: conversation w/ patient, conversation w/ family , physical exam, chart review, lab review, review of studies, conversation w/ commercial sales consultant, review of inpatient medication list Additional Details: No recurrent chest pain. Breathing improved. Tele reviewed -- no events. Review of Systems Constitutional: No fever, No chills Respiratory: No cough, No shortness of breath Cardiac: + edema Abdomen: + vomiting Objective Vital Signs Last Vital Signs Documentation Date Time Temp Pulse Resp B/P (MAP) Pulse Ox O2 Delivery O2 Flow Rate FiO2 06/27/18 08:38 94/43 (60) 06/27/18 07:02 83 18 93 Room Air 06/27/18 06:40 36.8 06/25/18 16:00 3.0 06/24/18 19:55 100 Physical Exam: General Appearance: no apparent distress, + obese ENT: pharynx normal Neck: no JVD Respiratory/Chest: lungs clear, no accessory muscle use Cardiovascular: regular rate, rhythm, no gallop, no murmur Abdomen: normal bowel sounds, soft Extremities: + pedal edema (Minimal), + pertinent finding (right groin wound -- clean, pain base with no surrounding erythema or induration) Neurologic/Psychiatric: alert, oriented x 3, + depressed affect Skin: normal color, warm/dry Assessment and Plan 1. Multi-vessel CAD/mildly elevated troponin 2. Acute systolic heart failure/ICM 3. RLE wound post Kath's gangrene debridement 4. DM2 5. Anemia Cardiac catheterization yesterday showed stable disease with patent GRIMES to LAD and left main/circumflex stents. Today patient well perfused with only minimal residual congestion. Renal function stable. No apparent procedural access site complications. --discussed with Dr. Jean, agree with transfusion today --IV Lasix after PRBCs --likely transition to p.o. diuretics tomorrow --continue current DAPT -- Continue current beta-malcolm; and PARAM-inhibitor -- Continue statin From a cardiac standpoint potentially okay for discharge tomorrow. Continued [facility] stay due to: voiding difficulties, ambulation difficulties, multiple IV medications needed, other (probable need for heart cath) Discharge planning: uncertain Medications: Current Inpatient Medications Medications (Trade) Dose Ordered Sig/Graham Route Start Time Stop Time Status Last Admin Dose Admin Enoxaparin Sodium (Lovenox Inj) 40 mg HS SC 06/23/18 22:00 07/23/18 21:59 06/26/18 21:03 40 MG Acetaminophen (Tylenol Tab) 650 mg Q4H PRN PO 06/23/18 17:45 07/23/18 17:44 Magnesium Hydroxide (Milk Of Magnesia Susp) 30 ml Q12H PRN PO 06/23/18 17:45 07/23/18 17:44 Ondansetron HCl (Zofran Inj) 4 mg Q6H PRN IV 06/23/18 17:45 07/23/18 17:44 06/25/18 14:13 4 MG Nitroglycerin (Nitrostat Tab) 0.4 mg UD PRN SL 06/23/18 17:45 07/23/18 17:44 Aspirin (Ecotrin Tab) 81 mg QAM PO 06/24/18 09:00 07/24/18 08:59 06/27/18 08:35 81 MG Atorvastatin Calcium (Lipitor Tab) 40 mg HS PO 06/23/18 21:00 07/23/18 20:59 06/26/18 21:00 40 MG Clopidogrel Bisulfate (plAVix TAB) 75 mg DAILY PO 06/24/18 09:00 07/24/18 08:59 06/27/18 08:34 75 MG Metoprolol Tartrate (Lopressor Tab) 50 mg BID PO 06/23/18 21:00 07/23/18 20:59 06/26/18 21:01 50 MG Pantoprazole Sodium (Protonix Tab) 40 mg QAM PO 06/24/18 09:00 07/24/18 08:59 06/27/18 08:34 40 MG Vancomycin HCl (Vancomycin Oral Soln) 125 mg Q6 PO 06/23/18 18:30 07/03/18 18:29 06/27/18 11:55 125 MG Lactobacillus Acidophilus (Floranex Tab) 4 tab TIDM PO 06/24/18 07:30 07/24/18 07:29 06/27/18 10:38 4 TAB Insulin Aspart (novoLOG ASPART) SLIDING SCALE G... ACHS SC 06/23/18 21:00 07/23/18 20:59 06/27/18 08:42 4 UNITS Primidone (Mysoline Tab) 50 mg HS PO 06/23/18 21:00 07/23/18 20:59 06/26/18 21:01 50 MG Gabapentin (Neurontin Cap) 200 mg HS PO 06/23/18 21:00 07/23/18 20:59 06/26/18 21:02 200 MG Tramadol HCl (Ultram Tab) 50 mg Q6H PRN PO 06/23/18 18:00 07/23/18 17:59 06/26/18 21:10 50 MG Glucose (Glucose 40% Gel) 15-30 GRAMS 15 GRAMS... UD PRN PO 06/23/18 18:30 07/23/18 18:29 Glucose (Glucose Chew Tab) 4-8 Tablets 4 Tabl... UD PRN PO 06/23/18 18:30 07/23/18 18:29 Dextrose (Dextrose 50% 50ML Syringe) 25-50ML 25ML FOR ... UD PRN IV 06/23/18 18:30 07/23/18 18:29 Glucagon (Glucagon Inj) 1 mg UD PRN IM 06/23/18 18:30 07/23/18 18:29 Carbohydrates (Carbohydrates For Hypoglycemia) 15-30 GRAMS 15 grams if BSG 54-69... UD PRN PO 06/23/18 18:30 07/23/18 18:29 Raspberry (Raspberry Syrup 5ml Cup) 5 ml Q6 PO 06/23/18 18:30 07/07/18 18:29 06/27/18 11:55 5 ML Albuterol/ Ipratropium (Duoneb) 3 ml QIDR INH 06/24/18 08:00 07/24/18 07:59 06/27/18 11:10 3 ML Multivitamins/ Minerals (Multivitamin W/ Minerals Tab) 1 tab QAM PO 06/25/18 09:00 07/25/18 08:59 06/27/18 08:34 1 TAB Zinc Sulfate (Zinc Sulfate Cap) 220 mg QAM PO 06/25/18 09:00 07/25/18 08:59 06/27/18 08:34 220 MG Ascorbic Acid (Vitamin C Tab) 500 mg QAM PO 06/25/18 09:00 07/25/18 08:59 06/27/18 08:35 500 MG Ferrous Sulfate (Feosol Tab) 325 mg BID PO 06/24/18 09:45 07/24/18 09:44 06/27/18 08:34 325 MG Potassium Chloride (Klor-Con Tab) 20 meq BID PO 06/24/18 09:45 07/24/18 09:44 06/26/18 21:00 20 MEQ Enteral Nutritional Formula (Boost Glucose Control) 1 can BIDM PO 06/24/18 16:45 07/24/18 16:44 06/27/18 08:37 1 CAN Furosemide 40 mg/ Syringe 4 ml @ 4 mls/min QAM IV 06/25/18 09:00 07/25/18 08:59 Future Hold 06/26/18 09:27 4 MLS/MIN Insulin Glargine (Lantus Solostar Pen) 20 units BID SC 06/25/18 09:00 07/23/18 20:59 06/27/18 08:43 20 UNITS Colestipol HCl (Colestid Tab) 1 gm TID@1000,1500,2200 PO 06/25/18 15:00 07/25/18 14:59 06/27/18 10:38 1 GM Lisinopril (Zestril Tab) 2.5 mg QAM PO 06/26/18 09:00 07/25/18 08:59 06/26/18 09:29 2.5 MG Buspirone HCl (BusPAR TAB) 7.5 mg BID PO 06/27/18 21:00 07/27/18 20:59 Lab Results: 06/27/18 05:16 06/27/18 05:16 Test 06/27/18 05:16 06/27/18 11:35 Red Blood Count 2.73 M/uL (4.2-5.4) Mean Corpuscular Volume 91.6 fL (80-100) Mean Corpuscular Hemoglobin 28.6 pg (25-34) Mean Corpuscular Hemoglobin Concent 31.2 g/dl (32-36) RDW Standard Deviation 56.2 fL (36.4-46.3) RDW Coefficient of Variation 17.2 % (11.5-14.5) Mean Platelet Volume 8.0 fL (7.4-10.4) Anion Gap 10.0 mmol/L (3-11) Est Creatinine Clear Calc Drug Dose 50.3 ml/min Estimated GFR () 55.2 Estimated GFR (Non- 47.6 BUN/Creatinine Ratio 13.9 (10-20) Calcium Level 8.3 mg/dl (8.5-10.1) Bedside Glucose 163 mg/dl (70-90)
[2018-06-27] MEDS: RANITIDINE IV 50 MG in DEXTROSE 5% 100ML 100 ML IV SCH ×2 (17:39→23:52)
--- NOTE | 2018-06-27 19:32 | Progress Note ---
Subjective Date of Service: Jun 27, 2018. Subjective Pt evaluation today including: conversation w/ patient, conversation w/ family ( at bedside), physical exam, chart review, lab review, conversation w/ medical device sales consultant (cardiology, wound nurse), review of inpatient medication list Pain: none voiced PO Intake: improving Voiding: dyson catheter in place tele with NSR, PVCs; no sustained dysrhythmia no BM in over 36 hours no nausea/emesis c/o palpitations/fluttering of heart some heartburn symptoms as well no dyspnea, orthopnea, PND still quite anxious; worrying about multiple issues Review of Systems Constitutional: No fever, No chills Respiratory: No cough Cardiac: No chest pain, No orthopnea Abdomen: No pain, No nausea, No vomiting Objective Vital Signs Date Time Temp Pulse Resp B/P (MAP) Pulse Ox O2 Delivery O2 Flow Rate FiO2 06/27/18 18:54 90 16 98 Room Air 06/27/18 18:12 37.1 85 18 121/61 95 06/27/18 17:12 36.9 91 18 124/71 96 06/27/18 16:42 36.9 95 18 134/72 96 06/27/18 16:27 36.8 89 18 125/58 96 06/27/18 16:00 97 Room Air 06/27/18 15:27 84 18 95 Room Air 06/27/18 15:13 36.9 91 20 124/58 (80) 97 Room Air 06/27/18 11:44 37.1 87 18 99/47 (64) 95 Room Air 06/27/18 11:10 85 18 93 Room Air 06/27/18 08:38 94/43 (60) 06/27/18 08:30 Room Air 06/27/18 07:02 83 18 93 Room Air 06/27/18 06:40 36.8 78 18 94/57 (69) 97 Room Air 06/27/18 00:00 Room Air 06/26/18 23:40 36.8 88 20 99/46 (63) 96 Room Air 06/26/18 21:45 86 20 110/73 (85) 98 Room Air 06/26/18 20:45 36.8 92 20 114/63 (80) 95 Room Air 06/26/18 20:00 37.0 95 20 94/53 (67) 93 Room Air 06/26/18 19:45 37.0 95 20 94/53 (67) 93 Room Air Physical Exam General Appearance: no apparent distress, + obese, + pertinent finding (looks older than stated age ) ENT: pharynx normal Neck: no JVD Respiratory/Chest: lungs clear, no respiratory distress, no accessory muscle use, + rales (scant - bases) Cardiovascular: regular rate, rhythm, no gallop, no murmur, + extra beats Abdomen: normal bowel sounds, non tender, soft, no organomegaly Extremities: + pedal edema (improved; <1+ b/l ) Neurologic/Psychiatric: alert, oriented x 3, + pertinent finding (very, very anxious) Skin: + pallor Laboratory Results Last 24 Hours Test 06/26/18 20:52 06/27/18 05:16 06/27/18 07:29 06/27/18 11:35 Bedside Glucose 132 mg/dl 119 mg/dl 163 mg/dl White Blood Count 5.69 K/uL Red Blood Count 2.73 M/uL Hemoglobin 7.8 g/dL Hematocrit 25.0 % Mean Corpuscular Volume 91.6 fL Mean Corpuscular Hemoglobin 28.6 pg Mean Corpuscular Hemoglobin Concent 31.2 g/dl RDW Standard Deviation 56.2 fL RDW Coefficient of Variation 17.2 % Platelet Count 273 K/uL Mean Platelet Volume 8.0 fL Sodium Level 140 mmol/L Potassium Level 4.0 mmol/L Chloride Level 104 mmol/L Carbon Dioxide Level 26 mmol/L Anion Gap 10.0 mmol/L Blood Urea Nitrogen 17 mg/dl Creatinine 1.23 mg/dl Est Creatinine Clear Calc Drug Dose 50.3 ml/min Estimated GFR () 55.2 Estimated GFR (Non- 47.6 BUN/Creatinine Ratio 13.9 Random Glucose 92 mg/dl Calcium Level 8.3 mg/dl Test 06/27/18 16:19 Bedside Glucose 123 mg/dl Assessment and Plan 62yo female with history of CAD s/p CABG in 1999, HTN, T2DM, morbid obesity, long-standing asthma, prior tobacco dependence (50 pack years), and recent month -long hospitalization at [facility] in [place] 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 1. positive troponin - likely from myocardial demand ischemia rather than ACS. Demand ischemia likely from acute CHF. s/p cath yesterday - findings were similar to previous heart cath. Will continue her chronic CAD meds including BB, asa, plavix, statin, etc. 2. acute systolic CHF - markedly improved. Resume diuresis - 20mg IV x 1 now, then additional lasix in between units 1 and 2. Fluid restrict to 1500cc/day. Try to improve blood albumin level w/ supplements. Continue BB; added low-dose PARAM (lisinopril 2.5mg daily) but we may be limited with BP. We are awaiting records from [facility] to see what prior echo showed. Daily BMP while here. Suspect systolic CHF is due to ischemic cardiomyopathy from prior [place] event. 3. edema - likely due to #2. Dopplers of b/l LEs neg for DVT. TSH was largely normal. Low albumin certainly isn't helping her edema either. 4. recent Kath's gangrene of right groin/thigh - appreciate Wound Care Team consultation. s/p woundvac placement today. Added MVI/zinc/Vit C to help promote wound healing. Added boost glucose control as well. 5. T2DM - improved with adjustments in lantus + novolog. No changes today. 6. h/o asthma - suspect she likely has COPD due to long-standing tobacco dependence - not in exacerbation at this time. Nebs/inhalers prn for symptoms. 7. morbid obesity - BMI 41. 8. HTN - controlled; continue home medications. Added low-dose PARAM for systolic CHF but BP is low and we may need to hold if BPs stay <90. 9. CAD - continue BB, statin, asa, plavix. See discussion above. 10. hyperlipidemia - statin. 11. DVT proph - lovenox once daily. 12. hypoalbuminemia / protein calorie malnutrition - MVI, vit C, zinc, and boost glucose control. 13. anemia - likely due to chronic disease - b12, folate wnl. Iron studies most c/w ACD but could have low grade Fe def. Will supplement. Given her severe CAD, CHF, and pulmonary disease will transfuse 2 units PRBCs, each over 3 hours, with lasix IV in between units. CBC in am. 14. FEN - AHA/DM diet. Fluid restrict 1500cc/day. BMP am. 15. low-normal BPs at times - checked cortisol level and wnl. 16. c diff colitis - cont vancomycin; records from [facility] state her stop date is 06/30/18. Cont lactinex TID. Colestipol 1gm TID. Overall improving/resolved clinically. 17. h/o tobacco dependence - quit 1 month ago. 18. PVCs - beta malcolm, reassurance. 19. severe anxiety - start buspar 7.5mg BID. 20. ?GERD - start zantac 50mg IV q8h. PT, OT evals appreciated updated once again at bedside oob to chair BID dispo - SNF for rehab Continued [facility] stay due to: voiding difficulties, ambulation difficulties, multiple IV medications needed, other (PRBC infusion) Discharge planning: [facility] facility
[2018-06-27] MEDS ORDERED: BusPIRone 15 MG TAB PO SCH (21:00)
[2018-06-27] MEDS: ATORVASTATIN 40 MG TAB PO SCH (21:00)
[2018-06-27] MEDS: PRIMIDONE 50 MG TAB PO SCH (21:02)
[2018-06-27] MEDS: GABAPENTIN 100 MG CAP PO SCH (21:03)
[2018-06-27] MEDS: ENOXAPARIN 40 MG/0.4 ML SYR SC SCH (21:06)
[2018-06-27] MEDS ORDERED: ALBUT/IPRATROP 3MG/0.5MG NEB 3 ML VIAL INH STA (23:59)
[2018-06-28] VITALS (12 sets, daily range): BP systolic 99–127; BP diastolic 51–74; PULSE 71–92; TEMP 36.7–37.1; O2SAT 94–100
[2018-06-28] MEDS ORDERED: NURSING DECISION MEDICATION ORDER SCH (01:00)
[2018-06-28] MEDS ORDERED: FUROSEMIDE 40 MG/4 ML VIAL IV SCH (01:15)
[2018-06-28] MEDS: RASPBERRY SYRUP 5 ML UDP PO SCH ×4 (05:50→23:46)
[2018-06-28] MEDS: VANCOMYCIN HCL 125 MG/2.5ML SOLN PO SCH ×4 (05:50→23:46)
--- NOTE | 2018-06-28 05:58 | Clinical Documentation Query ---
Dr. Davis, This is the reference provided by our software. The Stages of Chronic Renal Failure The ICD-10-CM classifies CKD based on severity. The severity of CKD is designated by stages 1-5. *Stage 2, code N18.2, equates to mild CKD; *Stage 3, code N18.3, equates to moderate CKD; *Stage 4, code N18.4, equates to severe CKD. *Code N18.6, End stage renal disease (ESRD), is assigned when the provider has documented mdg-vvsch-zebuh disease (ESRD). If both a stage of CKD and ESRD are documented, assign code N18.6 only. Stage GFR Stage I GFR >90 Stage II GFR 60-89 Stage III GFR 30-59 Stage IV GFR 15-29 Stage V GFR <15
[2018-06-28 06:38] LABS: HEMATOCRIT 34.8 % (37-47); HEMOGLOBIN 11.4 g/dL (12.0-16.0); MEAN CELL VOLUME 90.6 fL (80-100); MEAN CORPUSCULAR HEMOGLOBIN 29.7 pg (25-34); MEAN CORPUSCULAR HGB CONC 32.8 g/dl (32-36); MEAN PLATELET VOLUME 8.5 fL (7.4-10.4); PLATELET COUNT 262 K/uL (130-400); RED CELL DISTRIBUTION WIDTH CV 16.5 % (11.5-14.5); RED CELL DISTRIBUTION WIDTH SD 52.6 fL (36.4-46.3); WHITE BLOOD COUNT 6.82 K/uL (4.8-10.8)
--- NOTE | 2018-06-28 06:48 | DIAGNOSTIC IMAGING REPORT ---
CHEST ONE VIEW PORTABLE CLINICAL HISTORY: Shortness of breath COMPARISON STUDY: 06/23/2018 FINDINGS: The heart remains enlarged. There are postsurgical changes of a midline sternotomy. There is mild elevation of the interstitium consistent with mild pulmonary vascular congestion. There is no focal pulmonary consolidation. No significant pleural effusions are visualized.[ IMPRESSION: Cardiomegaly with radiographic evidence of mild congestive failure/fluid overload. No significant change from the prior study. Electronically signed by: Vazquez Mondragon M.D. 06/28/2018 6:47 AM Dictated Date/Time: 06/28/2018 6:46 AM
[2018-06-28] MEDS: ALBUT/IPRATROP 3MG/0.5MG NEB 3 ML VIAL INH SCH ×4 (06:59→18:56)
[2018-06-28 07:12] LABS: CALCIUM 8.8 mg/dl (8.5-10.1); CREATININE 1.13 mg/dl (0.60-1.20); POTASSIUM 3.9 mmol/L (3.5-5.1)
[2018-06-28] MEDS: ALPRAZOLAM 0.25 MG TAB PO PRN (08:10)
[2018-06-28] MEDS: BusPIRone 15 MG TAB PO SCH ×2 (08:55→20:18)
[2018-06-28] MEDS: ISOSORBIDE MONONITRATE 30 MG TABCR PO SCH (08:55)
[2018-06-28] MEDS: BOOST GLUCOSE CONTROL VANILLA PO SCH ×2 (08:55→16:42)
[2018-06-28] MEDS: FERROUS SULFATE 325 MG TAB PO SCH ×2 (08:56→21:14)
[2018-06-28] MEDS: LISINOPRIL 2.5 MG TAB PO SCH (08:56)
[2018-06-28] MEDS: ASCORBIC ACID 500 MG TAB PO SCH (08:56)
[2018-06-28] MEDS: ZINC SULFATE 220 MG CAP PO SCH (08:56)
[2018-06-28] MEDS: ASPIRIN 81 MG ECTAB PO SCH (08:56)
[2018-06-28] MEDS: PANTOprazole SOD 40 MG TAB PO SCH (08:57)
[2018-06-28] MEDS: POTASSIUM CHLORIDE 20 MEQ TABCR PO SCH ×2 (08:57→20:17)
[2018-06-28] MEDS: CEROVITE ADV FORMULA TAB PO SCH (08:57)
[2018-06-28] MEDS: CLOPIDOGREL BISULFATE 75 MG TAB PO SCH (08:57)
[2018-06-28] MEDS: RANITIDINE IV 50 MG in DEXTROSE 5% 100ML 100 ML IV SCH ×3 (08:57→23:48)
[2018-06-28] MEDS: METOPROLOL TARTRATE 50 MG TAB PO SCH ×2 (08:57→20:17)
[2018-06-28] MEDS: LACTOBACILLUS ACIDOPHILUS (FLORANEX) TAB PO SCH ×3 (08:57→16:42)
[2018-06-28] MEDS: INSULIN GLARGINE SOLOSTAR 100 UNITS/ML 3 ML PEN SC SCH ×2 (09:06→20:20)
[2018-06-28] MEDS: INSULIN ASPART 100 UNITS/ML 3 ML PEN SC SCH ×4 (09:06→20:16)
[2018-06-28] MEDS: COLESTIPOL HCL 1 GM TAB PO SCH ×3 (10:36→20:17)
[2018-06-28] MEDS ORDERED: FUROSEMIDE INJ 40 MG in SYRINGE 0 ML IV ONE (12:00)
[2018-06-28] MEDS: PRIMIDONE 50 MG TAB PO SCH (20:17)
[2018-06-28] MEDS: ATORVASTATIN 40 MG TAB PO SCH (20:17)
[2018-06-28] MEDS: GABAPENTIN 100 MG CAP PO SCH (20:18)
[2018-06-28] MEDS: ENOXAPARIN 40 MG/0.4 ML SYR SC SCH (20:18)
[2018-06-29] VITALS (10 sets, daily range): BP systolic 99–128; BP diastolic 53–61; PULSE 80–95; TEMP 36.6–36.9; O2SAT 93–96
[2018-06-29] MEDS: VANCOMYCIN HCL 125 MG/2.5ML SOLN PO SCH ×4 (05:24→23:49)
[2018-06-29] MEDS: RASPBERRY SYRUP 5 ML UDP PO SCH ×4 (05:25→23:49)
--- NOTE | 2018-06-29 05:33 | Progress Note ---
Subjective Date of Service: Jun 28, 2018. Subjective Pt evaluation today including: conversation w/ patient, conversation w/ family ( at bedside), physical exam, chart review, lab review, conversation w/ bi consultant (cardiology), review of inpatient medication list Pain: none reported PO Intake: eating decently Voiding: no voiding problems overnight patient had dyspnea, some orthopnea, re-application of NC O2, fluttering/palpitations, and burning sensation in chest she had received a prn neb without any improvement in symptoms continues to remain severely anxious she received her 2 units of PRBCs with lasix in between units the safety and health consultant was called following the completion of her transfusion and at that time an additional dose of IV lasix was given with copious diuresis during my AM rounds she was quite anxious, stating "why am I so short of breath? " only 1 stool in the last 2-3 days Review of Systems Constitutional: No fever, No chills Respiratory: + shortness of breath, No cough, No sputum, No wheezing Cardiac: + orthopnea, + PND, No chest pain, No edema Abdomen: No pain, No nausea, No vomiting, No diarrhea Objective Vital Signs Date Time Temp Pulse Resp B/P (MAP) Pulse Ox O2 Delivery O2 Flow Rate FiO2 06/28/18 18:56 88 18 96 Room Air 06/28/18 16:00 Room Air 06/28/18 15:42 36.7 88 20 99/52 (68) 96 Room Air 06/28/18 15:07 92 18 95 Room Air 06/28/18 12:00 37.1 77 16 125/74 (91) 100 Nasal Cannula 2.0 06/28/18 11:12 85 20 100 Nasal Cannula 2.0 06/28/18 08:00 Nasal Cannula 2.0 06/28/18 07:59 37.1 06/28/18 07:51 88 20 127/71 (89) 97 Nasal Cannula 2.0 06/28/18 06:59 87 20 99 Nasal Cannula 3.0 06/28/18 05:53 36.9 82 19 120/73 (89) 97 Room Air 06/28/18 00:07 89 20 99 Nasal Cannula 4.0 06/28/18 00:00 Room Air 06/27/18 23:43 36.5 84 19 132/75 (94) 94 Room Air 06/27/18 23:28 37.2 78 20 135/72 96 06/27/18 22:28 36.9 76 18 108/73 97 06/27/18 21:58 37.1 80 18 108/75 98 06/27/18 21:28 37.1 87 18 128/76 98 06/27/18 21:13 37.1 86 18 116/59 98 06/27/18 19:12 37.0 95 18 130/59 96 Physical Exam General Appearance: no apparent distress, + pertinent finding (very anxious) ENT: pharynx normal Neck: no JVD Respiratory/Chest: no respiratory distress, no accessory muscle use, + rales ( mild - bases) Cardiovascular: regular rate, rhythm, no gallop, no murmur Abdomen: normal bowel sounds, non tender, soft, no organomegaly Extremities: no pedal edema Neurologic/Psychiatric: alert, oriented x 3, + pertinent finding (anxious) Skin: + pertinent finding (pallor resolved ) Laboratory Results Last 24 Hours Test 06/27/18 20:58 06/28/18 06:03 06/28/18 07:18 06/28/18 11:18 Bedside Glucose 225 mg/dl 126 mg/dl 131 mg/dl White Blood Count 6.82 K/uL Red Blood Count 3.84 M/uL Hemoglobin 11.4 g/dL Hematocrit 34.8 % Mean Corpuscular Volume 90.6 fL Mean Corpuscular Hemoglobin 29.7 pg Mean Corpuscular Hemoglobin Concent 32.8 g/dl RDW Standard Deviation 52.6 fL RDW Coefficient of Variation 16.5 % Platelet Count 262 K/uL Mean Platelet Volume 8.5 fL Sodium Level 140 mmol/L Potassium Level 3.9 mmol/L Chloride Level 104 mmol/L Carbon Dioxide Level 25 mmol/L Anion Gap 11.0 mmol/L Blood Urea Nitrogen 16 mg/dl Creatinine 1.13 mg/dl Est Creatinine Clear Calc Drug Dose 54.1 ml/min Estimated GFR () 61.2 Estimated GFR (Non- 52.8 BUN/Creatinine Ratio 13.7 Random Glucose 111 mg/dl Calcium Level 8.8 mg/dl Magnesium Level 2.3 mg/dl Troponin I 0.043 ng/ml Test 06/28/18 16:16 Bedside Glucose 139 mg/dl Assessment and Plan 62yo female with history of CAD s/p CABG in 1999, HTN, T2DM, morbid obesity, long-standing asthma, prior tobacco dependence (50 pack years), and recent month -long hospitalization at [facility] in [place] 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 1. positive troponin - likely from myocardial demand ischemia rather than ACS. Demand ischemia from acute CHF. s/p cath this admission - findings were similar to previous heart cath. Will continue her chronic CAD meds including BB, asa, plavix, statin, etc. Despite chest symptoms in the last 24 hours her troponin is negative. 2. acute systolic CHF - s/p 3 doses of IV lasix in the last 24 hours. She still has edema on exam today. Plan another dose of IV lasix 40mg early this afternoon today. Continue to Fluid restrict to 1500cc/day. Try to improve blood albumin level w/ supplements. Continue BB; added low-dose PARAM (lisinopril 2.5mg daily) but we may be limited with BP. We are awaiting records from [facility] to see what prior echo showed. Daily BMP while here. Suspect systolic CHF is due to ischemic cardiomyopathy from prior [place] event. 3. anxiety - increase buspar to 15mg BID; add xanax 0.25mg prn. 4. recent Kath's gangrene of right groin/thigh - appreciate Wound Care Team consultation. s/p woundvac placement today. Added MVI/zinc/Vit C to help promote wound healing. Added boost glucose control as well. 5. T2DM - improved/controlled with adjustments in lantus + novolog. 6. h/o asthma - suspect she likely has COPD due to long-standing tobacco dependence - not in exacerbation at this time. 7. morbid obesity - BMI 40. 8. HTN - controlled; continue home medications. Added low-dose PARAM for systolic CHF. 9. CAD - continue BB, statin, asa, plavix. See discussion above. 10. hyperlipidemia - statin. 11. DVT proph - lovenox once daily. 12. hypoalbuminemia / protein calorie malnutrition - MVI, vit C, zinc, and boost glucose control. 13. anemia - likely due to chronic disease - b12, folate wnl. Iron studies most c/w ACD but could have low grade Fe def. Will supplement. s/p 2 units PRBCs with improved H/H today. CBC in am. 14. FEN - AHA/DM diet. Fluid restrict 1500cc/day. BMP am. 15. c diff colitis - cont vancomycin; records from [facility] state her stop date is 06/30/18. Cont lactinex TID. Colestipol 1gm TID. Resolved. 16. h/o tobacco dependence - quit 1 month ago. 17. PVCs - consider titration of beta malcolm. 18. ?GERD - change zantac to 150 BID by mouth. PT, OT evals appreciated updated once again at bedside oob to chair BID dispo - SNF for rehab Continued [facility] stay due to: voiding difficulties, ambulation difficulties, multiple IV medications needed, other (CHF) [facility]charge planning: [facility] facility
[2018-06-29 06:25] LABS: HEMATOCRIT 36.9 % (37-47); HEMOGLOBIN 11.8 g/dL (12.0-16.0); MEAN CELL VOLUME 91.3 fL (80-100); MEAN CORPUSCULAR HEMOGLOBIN 29.2 pg (25-34); MEAN PLATELET VOLUME 8.2 fL (7.4-10.4); PLATELET COUNT 228 K/uL (130-400); RED CELL DISTRIBUTION WIDTH CV 16.9 % (11.5-14.5); RED CELL DISTRIBUTION WIDTH SD 54.9 fL (36.4-46.3); WHITE BLOOD COUNT 7.69 K/uL (4.8-10.8)
[2018-06-29] MEDS: ALBUT/IPRATROP 3MG/0.5MG NEB 3 ML VIAL INH SCH ×3 (06:49→19:39)
[2018-06-29 06:59] LABS: CALCIUM 8.8 mg/dl (8.5-10.1); CREATININE 1.19 mg/dl (0.60-1.20); POTASSIUM 3.8 mmol/L (3.5-5.1)
[2018-06-29] MEDS: BOOST GLUCOSE CONTROL VANILLA PO SCH ×2 (07:30→16:34)
[2018-06-29] MEDS: INSULIN GLARGINE SOLOSTAR 100 UNITS/ML 3 ML PEN SC SCH ×2 (08:33→22:00)
[2018-06-29] MEDS: INSULIN ASPART 100 UNITS/ML 3 ML PEN SC SCH ×4 (08:33→21:58)
[2018-06-29] MEDS: ISOSORBIDE MONONITRATE 30 MG TABCR PO SCH (08:38)
[2018-06-29] MEDS: CLOPIDOGREL BISULFATE 75 MG TAB PO SCH (08:38)
[2018-06-29] MEDS: PANTOprazole SOD 40 MG TAB PO SCH (08:38)
[2018-06-29] MEDS: LACTOBACILLUS ACIDOPHILUS (FLORANEX) TAB PO SCH ×3 (08:38→16:46)
[2018-06-29] MEDS: CEROVITE ADV FORMULA TAB PO SCH (08:38)
[2018-06-29] MEDS: FERROUS SULFATE 325 MG TAB PO SCH ×2 (08:39→21:51)
[2018-06-29] MEDS: ASCORBIC ACID 500 MG TAB PO SCH (08:39)
[2018-06-29] MEDS: METOPROLOL TARTRATE 50 MG TAB PO SCH (08:39)
[2018-06-29] MEDS: ASPIRIN 81 MG ECTAB PO SCH (08:39)
[2018-06-29] MEDS: BusPIRone 15 MG TAB PO SCH ×2 (08:39→21:51)
[2018-06-29] MEDS: POTASSIUM CHLORIDE 20 MEQ TABCR PO SCH ×2 (08:40→21:51)
[2018-06-29] MEDS: LISINOPRIL 2.5 MG TAB PO SCH (08:40)
[2018-06-29] MEDS: ZINC SULFATE 220 MG CAP PO SCH (08:40)
--- NOTE | 2018-06-29 08:43 | Cardiology Follow-Up ---
Subjective Subjective Date of Service: Jun 29, 2018. Pt evaluation today including: conversation w/ patient, physical exam, chart review, lab review, review of studies, review of inpatient medication list Additional Details: No chest pain. Breathing "a little tight this morning" but improved currently and no additional events overnight. No other new concerns - ready to go home. Tele reviewed - no events Review of Systems Constitutional: No fever, No chills Respiratory: No cough, No sputum, No wheezing Cardiac: No chest pain, No edema Abdomen: No pain, No nausea, No vomiting, No diarrhea Objective Vital Signs Last Vital Signs Documentation Date Time Temp Pulse Resp B/P (MAP) Pulse Ox O2 Delivery O2 Flow Rate FiO2 06/29/18 08:05 36.6 95 16 128/59 (82) 95 Room Air 06/28/18 12:00 2.0 06/24/18 19:55 100 Physical Exam: General Appearance: no apparent distress, + pertinent finding (very anxious) ENT: pharynx normal Neck: no JVD Respiratory/Chest: no respiratory distress, no accessory muscle use Cardiovascular: regular rate, rhythm, no gallop, no murmur Abdomen: normal bowel sounds, non tender, soft, no organomegaly Extremities: no pedal edema, + pertinent finding (left radial artery access site - pulse intact, no hematoma/ecchymosis. Right thigh wound dressed - no surrounding erythema/drainage) Neurologic/Psychiatric: alert, oriented x 3, + pertinent finding (anxious) Skin: + pertinent finding (pallor resolved ) Assessment and Plan 1. Multi-vessel CAD/mildly elevated troponin 2. Acute systolic heart failure/ICM 3. RLE wound post Kath's gangrene debridement 4. DM2 5. Anemia Well perfused, minimal residual congestion on exam. Down more than 6L from admission. Renal function stable. From a cardiac standpoint OK for discharge today. -- Would d/c on following cardiac regimen: - Toprol XL 100mg - Lisinopril 5mg - Atorvastatin 40mg - Clopidogrel 75mg - Aspirin 81mg - Furosemide 40mg Follow-up with me in 2-3 weeks. Repeat echo 3 months as an outpatient. Continued [facility] stay due to: multiple IV medications needed Discharge planning: snf facility Medications: Current Inpatient Medications Medications (Trade) Dose Ordered Sig/[facility] Route Start Time Stop Time Status Last Admin Dose Admin Enoxaparin Sodium (Lovenox Inj) 40 mg HS SC 06/23/18 22:00 07/23/18 21:59 06/28/18 20:18 40 MG Acetaminophen (Tylenol Tab) 650 mg Q4H PRN PO 06/23/18 17:45 07/23/18 17:44 Magnesium Hydroxide (Milk Of Magnesia Susp) 30 ml Q12H PRN PO 06/23/18 17:45 07/23/18 17:44 Ondansetron HCl (Zofran Inj) 4 mg Q6H PRN IV 06/23/18 17:45 07/23/18 17:44 06/25/18 14:13 4 MG Nitroglycerin (Nitrostat Tab) 0.4 mg UD PRN SL 06/23/18 17:45 07/23/18 17:44 Aspirin (Ecotrin Tab) 81 mg QAM PO 06/24/18 09:00 07/24/18 08:59 06/28/18 08:56 81 MG Atorvastatin Calcium (Lipitor Tab) 40 mg HS PO 06/23/18 21:00 07/23/18 20:59 06/28/18 20:17 40 MG Clopidogrel Bisulfate (plAVix TAB) 75 mg DAILY PO 06/24/18 09:00 07/24/18 08:59 06/28/18 08:57 75 MG Metoprolol Tartrate (Lopressor Tab) 50 mg BID PO 06/23/18 21:00 07/23/18 20:59 06/28/18 20:17 50 MG Pantoprazole Sodium (Protonix Tab) 40 mg QAM PO 06/24/18 09:00 07/24/18 08:59 06/28/18 08:57 40 MG Vancomycin HCl (Vancomycin Oral Soln) 125 mg Q6 PO 06/23/18 18:30 07/03/18 18:29 06/29/18 05:24 125 MG Lactobacillus Acidophilus (Floranex Tab) 4 tab TIDM PO 06/24/18 07:30 07/24/18 07:29 06/28/18 16:42 4 TAB Insulin Aspart (novoLOG ASPART) SLIDING SCALE G... ACHS SC 06/23/18 21:00 07/23/18 20:59 06/28/18 16:44 4 UNITS Primidone (Mysoline Tab) 50 mg HS PO 06/23/18 21:00 07/23/18 20:59 06/28/18 20:17 50 MG Gabapentin (Neurontin Cap) 200 mg HS PO 06/23/18 21:00 07/23/18 20:59 06/28/18 20:18 200 MG Tramadol HCl (Ultram Tab) 50 mg Q6H PRN PO 06/23/18 18:00 07/23/18 17:59 06/26/18 21:10 50 MG Glucose (Glucose 40% Gel) 15-30 GRAMS 15 GRAMS... UD PRN PO 06/23/18 18:30 07/23/18 18:29 Glucose (Glucose Chew Tab) 4-8 Tablets 4 Tabl... UD PRN PO 06/23/18 18:30 07/23/18 18:29 Dextrose (Dextrose 50% 50ML Syringe) 25-50ML 25ML FOR ... UD PRN IV 06/23/18 18:30 07/23/18 18:29 Glucagon (Glucagon Inj) 1 mg UD PRN IM 06/23/18 18:30 07/23/18 18:29 Carbohydrates (Carbohydrates For Hypoglycemia) 15-30 GRAMS 15 grams if BSG 54-69... UD PRN PO 06/23/18 18:30 07/23/18 18:29 Raspberry (Raspberry Syrup 5ml Cup) 5 ml Q6 PO 06/23/18 18:30 07/07/18 18:29 06/29/18 05:25 5 ML Albuterol/ Ipratropium (Duoneb) 3 ml QIDR INH 06/24/18 08:00 07/24/18 07:59 06/29/18 06:49 3 ML Multivitamins/ Minerals (Multivitamin W/ Minerals Tab) 1 tab QAM PO 06/25/18 09:00 07/25/18 08:59 06/28/18 08:57 1 TAB Zinc Sulfate (Zinc Sulfate Cap) 220 mg QAM PO 06/25/18 09:00 07/25/18 08:59 06/28/18 08:56 220 MG Ascorbic Acid (Vitamin C Tab) 500 mg QAM PO 06/25/18 09:00 07/25/18 08:59 06/28/18 08:56 500 MG Ferrous Sulfate (Feosol Tab) 325 mg BID PO 06/24/18 09:45 07/24/18 09:44 06/28/18 21:14 325 MG Potassium Chloride (Klor-Con Tab) 20 meq BID PO 06/24/18 09:45 07/24/18 09:44 06/28/18 20:17 20 MEQ Enteral Nutritional Formula (Boost Glucose Control) 1 can BIDM PO 06/24/18 16:45 07/24/18 16:44 06/28/18 16:42 1 CAN Furosemide 40 mg/ Syringe 4 ml @ 4 mls/min QAM IV 06/25/18 09:00 07/25/18 08:59 Future hold 06/26/18 09:27 4 MLS/MIN Insulin Glargine (Lantus Solostar Pen) 20 units BID SC 06/25/18 09:00 07/23/18 20:59 06/28/18 20:20 20 UNITS Colestipol HCl (Colestid Tab) 1 gm TID@1000,1500,2200 PO 06/25/18 15:00 07/25/18 14:59 06/28/18 20:17 1 GM Lisinopril (Zestril Tab) 2.5 mg QAM PO 06/26/18 09:00 07/25/18 08:59 06/28/18 08:56 2.5 MG Buspirone HCl (BusPAR TAB) 15 mg BID PO 06/28/18 09:00 07/27/18 20:59 06/28/18 20:18 15 MG Alprazolam (Xanax Tab) 0.25 mg Q6H PRN PO 06/28/18 08:00 07/28/18 07:59 06/28/18 08:10 0.25 MG Isosorbide Mononitrate (Imdur Ext Rel Tab) 30 mg QAM PO 06/28/18 09:00 07/28/18 08:59 06/28/18 08:55 30 MG Lab Results: 06/29/18 06:08 06/29/18 06:08 Test 06/29/18 06:08 06/29/18 07:27 Red Blood Count 4.04 M/uL (4.2-5.4) Mean Corpuscular Volume 91.3 fL (80-100) Mean Corpuscular Hemoglobin 29.2 pg (25-34) Mean Corpuscular Hemoglobin Concent 32.0 g/dl (32-36) RDW Standard Deviation 54.9 fL (36.4-46.3) RDW Coefficient of Variation 16.9 % (11.5-14.5) Mean Platelet Volume 8.2 fL (7.4-10.4) Anion Gap 9.0 mmol/L (3-11) Est Creatinine Clear Calc Drug Dose 50.9 ml/min Estimated GFR () 57.5 Estimated GFR (Non- 49.6 BUN/Creatinine Ratio 13.8 (10-20) Calcium Level 8.8 mg/dl (8.5-10.1) Bedside Glucose 118 mg/dl (70-90)
[2018-06-29] MEDS: COLESTIPOL HCL 1 GM TAB PO SCH ×3 (10:12→22:02)
[2018-06-29] MEDS: FUROSEMIDE INJ 40 MG in SYRINGE 0 ML IV SCH (10:52)
--- NOTE | 2018-06-29 17:02 | Progress Note ---
Subjective Date of Service: Jun 29, 2018. Subjective Pt evaluation today including: conversation w/ patient, conversation w/ family ( at bedside), physical exam, chart review, lab review, review of inpatient medication list Pain: none during the visit PO Intake: eating 100% meals Voiding: dyson catheter in place tele stable overnight PVCs only no dyspnea overnight although at 0700 she requested a neb for minimal shortness of breath no chest pain occasional heartburn no diarrhea; stool is now formed/soft no abd pain multiple questions about SNF / rehab Review of Systems Constitutional: No fever, No chills Respiratory: No cough, No sputum, No wheezing Cardiac: No chest pain Abdomen: No pain Objective Vital Signs Date Time Temp Pulse Resp B/P (MAP) Pulse Ox O2 Delivery O2 Flow Rate FiO2 06/29/18 16:00 36.6 92 20 119/58 (78) 95 Room Air 06/29/18 12:03 36.6 80 16 106/61 (76) 96 Room Air 06/29/18 11:14 92 18 96 Room Air 06/29/18 08:05 36.6 95 16 128/59 (82) 95 Room Air 06/29/18 08:00 Room Air 2.0 06/29/18 06:49 88 18 96 Room Air 06/29/18 04:48 36.9 80 17 113/54 (73) 95 Room Air 06/28/18 23:59 Room Air 06/28/18 23:45 36.9 71 18 117/63 (81) 97 Room Air 06/28/18 19:46 36.7 90 20 105/51 (69) 94 Room Air 06/28/18 18:56 88 18 96 Room Air Physical Exam General Appearance: no apparent distress, + pertinent finding (looks older than stated age) ENT: pharynx normal Neck: no JVD Respiratory/Chest: no respiratory distress, no accessory muscle use, + rales ( scant - bases) Cardiovascular: regular rate, rhythm, no gallop, no murmur Abdomen: normal bowel sounds, non tender, soft, no organomegaly Extremities: no pedal edema Neurologic/Psychiatric: alert, oriented x 3, + pertinent finding (anxious) Skin: + pertinent finding (wound vac in place, right anterior thigh ) Laboratory Results Last 24 Hours Test 06/28/18 20:15 06/29/18 06:08 06/29/18 07:27 8/23/18 11:13 Bedside Glucose 159 mg/dl 118 mg/dl 150 mg/dl White Blood Count 7.69 K/uL Red Blood Count 4.04 M/uL Hemoglobin 11.8 g/dL Hematocrit 36.9 % Mean Corpuscular Volume 91.3 fL Mean Corpuscular Hemoglobin 29.2 pg Mean Corpuscular Hemoglobin Concent 32.0 g/dl RDW Standard Deviation 54.9 fL RDW Coefficient of Variation 16.9 % Platelet Count 228 K/uL Mean Platelet Volume 8.2 fL Sodium Level 139 mmol/L Potassium Level 3.8 mmol/L Chloride Level 103 mmol/L Carbon Dioxide Level 27 mmol/L Anion Gap 9.0 mmol/L Blood Urea Nitrogen 16 mg/dl Creatinine 1.19 mg/dl Est Creatinine Clear Calc Drug Dose 50.9 ml/min Estimated GFR () 57.5 Estimated GFR (Non- 49.6 BUN/Creatinine Ratio 13.8 Random Glucose 94 mg/dl Calcium Level 8.8 mg/dl Test 06/29/18 16:30 Bedside Glucose 131 mg/dl Assessment and Plan 62yo female with history of CAD s/p CABG in 1999, HTN, T2DM, morbid obesity, long-standing asthma, prior tobacco dependence (50 pack years), and recent month -long hospitalization at [facility] in [place] 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 1. positive troponin - likely from myocardial demand ischemia rather than ACS. Demand ischemia from acute CHF. s/p cath this admission - findings were similar to previous heart cath. Medical management recommended; no new stents placed. Will continue her chronic CAD meds including BB, asa, plavix, statin, etc. 2. acute systolic CHF - approaching euvolemia. 1 more dose of IV lasix today; then probably po lasix tomorrow 40mg daily. Continue to Fluid restrict to 1500cc/day. Try to improve blood albumin level w/ supplements. Continue BB; added low-dose PARAM. We are awaiting records from [facility] to see what prior echo showed. Daily BMP while here. Suspect systolic CHF is due to ischemic cardiomyopathy from prior AL event. 3. anxiety - improving; cont buspar 15mg BID and xanax 0.25mg prn. 4. recent Kath's gangrene of right groin/thigh - appreciate Wound Care Team consultation. s/p woundvac placement today. Added MVI/zinc/Vit C to help promote wound healing. Added boost glucose control as well. 5. T2DM - controlled with adjustments in lantus + novolog. 6. h/o asthma - suspect she likely has COPD due to long-standing tobacco dependence - not in exacerbation at this time. 7. morbid obesity - BMI 40. 8. HTN - controlled; continue home medications. 9. CAD - continue BB, statin, asa, plavix. See discussion above. 10. hyperlipidemia - statin. 11. DVT proph - lovenox once daily. 12. hypoalbuminemia / protein calorie malnutrition - MVI, vit C, zinc, and boost glucose control. I encouraged her today/yesterday to take the boost due to the low albumin levels. 13. anemia - likely due to chronic disease - b12, folate wnl. Iron studies most c/w ACD but could have low grade Fe def. s/p 2 units PRBCs with stable H/H since. Cont Fe supplementation. 14. FEN - AHA/DM diet. Fluid restrict 1500cc/day. BMP am. 15. c diff colitis - cont vancomycin; stop date is 06/30/18. Cont lactinex TID. Colestipol 1gm TID. Resolved. 16. h/o tobacco dependence - quit 1 month ago. 17. PVCs - change beta malcolm to toprol xl 50mg hs. Titrate if possible. 18. GERD - cont PPI. PT, OT kelly appreciated updated once again at bedside dispo - SNF for rehab; hopefully can d/c tomorrow to SNF Continued [facility] stay due to: multiple IV medications needed [facility]charge planning: [facility] facility
[2018-06-29] MEDS: ONDANSETRON INJ 2 MG/ML 2 ML VIAL IV PRN (19:01)
[2018-06-29] MEDS: ALPRAZOLAM 0.25 MG TAB PO PRN (19:01)
[2018-06-29] MEDS ORDERED: METOPROLOL SUCC 50MG EXT REL TAB PO SCH (21:00)
[2018-06-29] MEDS: GABAPENTIN 100 MG CAP PO SCH (21:52)
[2018-06-29] MEDS: ENOXAPARIN 40 MG/0.4 ML SYR SC SCH (21:55)
[2018-06-29] MEDS: ATORVASTATIN 40 MG TAB PO SCH (22:02)
[2018-06-29] MEDS: PRIMIDONE 50 MG TAB PO SCH (22:02)
[2018-06-30 03:31] VITALS: BP 110/52; PULSE 72; TEMP 36.8; O2SAT 95
[2018-06-30] MEDS: VANCOMYCIN HCL 125 MG/2.5ML SOLN PO SCH ×2 (05:45→12:33)
[2018-06-30] MEDS: RASPBERRY SYRUP 5 ML UDP PO SCH ×2 (05:45→12:33)
[2018-06-30 06:38] LABS: CALCIUM 8.9 mg/dl (8.5-10.1); CREATININE 1.32 mg/dl (0.60-1.20)
[2018-06-30 07:00] VITALS: PULSE 74; O2SAT 96
[2018-06-30] MEDS: ALBUT/IPRATROP 3MG/0.5MG NEB 3 ML VIAL INH SCH ×2 (07:00→11:04)
[2018-06-30 07:38] VITALS: BP 107/54; PULSE 70; TEMP 37.2; O2SAT 96
[2018-06-30] MEDS: ISOSORBIDE MONONITRATE 30 MG TABCR PO SCH (08:49)
[2018-06-30] MEDS: CLOPIDOGREL BISULFATE 75 MG TAB PO SCH (08:49)
[2018-06-30] MEDS: CEROVITE ADV FORMULA TAB PO SCH (08:49)
[2018-06-30] MEDS: BOOST GLUCOSE CONTROL VANILLA PO SCH (08:49)
[2018-06-30] MEDS: ASCORBIC ACID 500 MG TAB PO SCH (08:50)
[2018-06-30] MEDS: POTASSIUM CHLORIDE 20 MEQ TABCR PO SCH (08:50)
[2018-06-30] MEDS: PANTOprazole SOD 40 MG TAB PO SCH (08:51)
[2018-06-30] MEDS: ASPIRIN 81 MG ECTAB PO SCH (08:51)
[2018-06-30] MEDS: ZINC SULFATE 220 MG CAP PO SCH (08:51)
[2018-06-30] MEDS: LACTOBACILLUS ACIDOPHILUS (FLORANEX) TAB PO SCH ×2 (08:51→12:32)
[2018-06-30] MEDS: LISINOPRIL 2.5 MG TAB PO SCH (08:51)
[2018-06-30] MEDS: BusPIRone 15 MG TAB PO SCH (08:51)
[2018-06-30] MEDS: FERROUS SULFATE 325 MG TAB PO SCH (08:51)
[2018-06-30] MEDS: INSULIN ASPART 100 UNITS/ML 3 ML PEN SC SCH ×2 (08:57→12:36)
[2018-06-30] MEDS: INSULIN GLARGINE SOLOSTAR 100 UNITS/ML 3 ML PEN SC SCH (08:58)
[2018-06-30] MEDS ORDERED: FUROSEMIDE 40 MG TAB PO SCH (09:00)
[2018-06-30] MEDS: COLESTIPOL HCL 1 GM TAB PO SCH (10:03)
[2018-06-30 11:05] VITALS: PULSE 77; O2SAT 97
[2018-06-30] MEDS ORDERED: LSX40 PO (11:55)
[2018-06-30] MEDS ORDERED: IPRA-64 INH (11:55)
[2018-06-30] MEDS ORDERED: ALPR0.254 PO (11:55)
[2018-06-30] MEDS ORDERED: NRN100 PO (11:55)
[2018-06-30] MEDS ORDERED: MYS50 PO (11:55)
[2018-06-30] MEDS ORDERED: LSN25 PO (11:55)
[2018-06-30] MEDS ORDERED: FRRS300 PO (11:55)
[2018-06-30] MEDS ORDERED: CLS1 PO (11:55)
[2018-06-30] MEDS ORDERED: ZNCS220 PO (11:55)
[2018-06-30] MEDS ORDERED: NUTR-7 PO (11:55)
[2018-06-30] MEDS ORDERED: MCRK20 PO (11:55)
[2018-06-30] MEDS ORDERED: BUSP15TA70 PO (11:55)
[2018-06-30] MEDS ORDERED: CNT PO (11:55)
[2018-06-30] MEDS ORDERED: ULT50X PO (11:55)
[2018-06-30] MEDS ORDERED: NVLGIPEN SC (11:55)
[2018-06-30] MEDS ORDERED: VANC1SUS PO (11:55)
[2018-06-30] MEDS ORDERED: ACET-1047 PO (11:55)
[2018-06-30] MEDS ORDERED: METO-217 PO (11:55)
[2018-06-30] MEDS ORDERED: ASCA500 PO (11:55)
[2018-06-30] MEDS ORDERED: INSDGIPEN SC (11:55)
--- NOTE | 2018-06-30 12:05 | Discharge Instructions ---
Discharge Instructions Date of Service Jun 30, 2018. Admission Reason for Admission: Congestive Heart Failure Discharge Discharge Diagnosis / Problem: Congestive Heart Failure - Improved. Wound, right leg - stable. Discharge Goals Goal(s): Decrease discomfort, Improve disease control, Learn about illness, Diagnostic testing, Therapeutic intervention Activity Recommendations Activity Level: Assistance Required Therapies: Physical Therapy, Occupational Therapy Ok to shower but keep right leg wound and wound vac clean/dry/intact. NO SUBMERSION IN A BATH OR POOL. . Additional Information Patient informed of condition: Yes Advance Directives: No DNR: No Level of Care: Skilled Communicable Disease: No Prognosis: Stable Oxygen at (LPM): none Benítez Catheter: No Instructions / Follow-Up Instructions / Follow-Up Follow-up appointments - 1. see Dr. Harlan Fisher, [facility] Cardiology - or one of his associates - within 1-[address]. [address] Daniel Euceda - [facility] [place] [facility] - on 07/03/18 as scheduled 3. see the [facility] within 1 week 4. see the medical affairs leader of SNF within 48 hours of admission Congestive Heart Failure Instructions: Call 911 and go to the Emergency Room if: * You have tightness or pain in your chest that does not go away with rest or Nitroglycerin * You are very short of breath even with rest Call your doctor if any of the following symptoms or problems start or get worse: * Shortness of breath or difficulty breathing * Wake up at night short of breath * Chest pain * Cough * Swelling of your hands, fee, or legs * More fatigued or tired with your normal activity * Palpitations - sudden fast heart beats WEIGHT * Weigh yourself every morning after using the bathroom. * Use the same scale. * Wear the same amount of clothing. * Write your weight down on your chart. * Call your doctor if you gain more than 2-3 pounds in 1-2 days. MEDICATIONS * Use this discharge instruction sheet for instructions. * Take your medications at the time your doctor ordered. * Do not skip a dose of your medicines. * If you miss a dose of medicine, take as soon as possible, but DO NOT DOUBLE A DOSE. * Read your medicine information when you get home. * Know all of the side effects of your medicine. * Call your doctor's office if you have any side effects. * Be sure all of your doctors know what medicine and herbs you take (including cold, flu, and herbal medicine). * Pain Medicine: If you do not get relief from your pain, please call your doctor for help. Take the following with you to your follow-up doctor appointments: * Weight Chart * Medication List * List of questions Do not drink excessive alcohol, beer or wine. Current Hospital Diet Patient's current hospital diet: Diabetes Type 2 Diet, Low Sodium Diet (2gm Na) Discharge Diet Recommended Diet: Low Sodium Diet (2gm Na), Diabetes Type 2 Diet Fluid Restriction: 1500 ml (6 cups) Procedures Procedures Performed: 1. Right leg doppler ultrasound negative for DVT. 2. Echocardiogram with ejection fraction of 35% and grade 2 diastolic dysfunction. 3. Heart catheterization with severe CAD but cath findings UNCHANGED from prior cath (Harlan Fisher MD). Pending Studies Studies pending at discharge: no Physician Orders On Transfer Special Precautions: contact Dressing Changes: Woundvac to right groin/right thigh wound - continuous mode. Only to be changed by the [facility] in [place] OR by her surgeons at [facility]. IV Therapy: none Vital Signs: per routine Weigh: EVERY MORNING ON STANDING SCALE. NOTIFY CLERK SPECIALIST OF ANY WEIGHT GAIN OF MORE THAN 2-3 POUNDS IN 1-2 DAYS. PT'S WEIGHT ON DAY OF DISCHARGE (06/30/18) AT [facility] - 197 POUNDS. Additional Orders: CBC, BMP, MAGNESIUM LEVEL IN 3 DAYS FOR STABILITY, THEN 1 WEEK AFTER THAT, AND THEN AT THE DISCRETION OF HER PHYSICIANS. Fingerstick blood sugars - at mealtime and at bedtime. POLST Discussion: Not Applicable Laboratory Results 06/28/18 06:03 06/29/18 06:08 06/28/18 06:03 06/29/18 06:08 06/30/18 05:36 Test 06/27/18 16:19 06/27/18 20:58 06/28/18 06:03 06/28/18 07:18 Bedside Glucose 123 mg/dl (70-90) 225 mg/dl (70-90) 126 mg/dl (70-90) Red Blood Count 3.84 M/uL (4.2-5.4) Mean Corpuscular Volume 90.6 fL (80-100) Mean Corpuscular Hemoglobin 29.7 pg (25-34) Mean Corpuscular Hemoglobin Concent 32.8 g/dl (32-36) RDW Standard Deviation 52.6 fL (36.4-46.3) RDW Coefficient of Variation 16.5 % (11.5-14.5) Mean Platelet Volume 8.5 fL (7.4-10.4) Anion Gap 11.0 mmol/L (3-11) Est Creatinine Clear Calc Drug Dose 54.1 ml/min Estimated GFR () 61.2 Estimated GFR (Non- 52.8 BUN/Creatinine Ratio 13.7 (10-20) Calcium Level 8.8 mg/dl (8.5-10.1) Magnesium Level 2.3 mg/dl (1.8-2.4) Troponin I 0.043 ng/ml (0-0.045) Test 06/28/18 11:18 06/28/18 16:16 06/28/18 20:15 06/29/18 06:08 Bedside Glucose 131 mg/dl (70-90) 139 mg/dl (70-90) 159 mg/dl (70-90) Red Blood Count 4.04 M/uL (4.2-5.4) Mean Corpuscular Volume 91.3 fL (80-100) Mean Corpuscular Hemoglobin 29.2 pg (25-34) Mean Corpuscular Hemoglobin Concent 32.0 g/dl (32-36) RDW Standard Deviation 54.9 fL (36.4-46.3) RDW Coefficient of Variation 16.9 % (11.5-14.5) Mean Platelet Volume 8.2 fL (7.4-10.4) Anion Gap 9.0 mmol/L (3-11) Est Creatinine Clear Calc Drug Dose 50.9 ml/min Estimated GFR () 57.5 Estimated GFR (Non- 49.6 BUN/Creatinine Ratio 13.8 (10-20) Calcium Level 8.8 mg/dl (8.5-10.1) Test 06/29/18 07:27 06/29/18 11:13 06/29/18 16:30 06/29/18 20:32 Bedside Glucose 118 mg/dl (70-90) 150 mg/dl (70-90) 131 mg/dl (70-90) 201 mg/dl (70-90) Test 06/30/18 05:36 06/30/18 07:22 06/30/18 11:15 06/30/18 11:40 Anion Gap 9.0 mmol/L (3-11) Est Creatinine Clear Calc Drug Dose 41.7 ml/min Estimated GFR () 50.7 Estimated GFR (Non- 43.7 BUN/Creatinine Ratio 15.8 (10-20) Calcium Level 8.9 mg/dl (8.5-10.1) Magnesium Level 2.4 mg/dl (1.8-2.4) Bedside Glucose 123 mg/dl (70-90) 233 mg/dl (70-90) Medical Emergencies . Who to Call and When: Medical Emergencies: If at any time you feel your situation is an emergency, please call 911 immediately. . Non-Emergent Contact Non-Emergency issues call your: Primary Care Provider, High School Director, Surgeon Call Non-Emergent contact if: temperature is above 100.5, your pain is not controlled, your pain is worsening, your pain is unusual for you, your pain is concerning you, wound has increased drainage, wound has increased redness, wound has increased pain, you have any medication questions . . "Provider Documentation" section prepared by Josue Jean. . Core Measure Problem Core Measures: None
[2018-06-30 12:12] VITALS: BP 97/39; PULSE 91; TEMP 37.3; O2SAT 97
[2018-06-30 12:16] VITALS: BP 97/59; PULSE 91; TEMP 37.3; O2SAT 97
[2018-06-30] MEDS: ALPRAZOLAM 0.25 MG TAB PO PRN (12:39)
[2018-06-30] MEDS ORDERED: CEPHALEXIN MONOHYDRATE 250 MG CAP PO ONE (13:15)
[2018-06-30] MEDS ORDERED: LACTCHW3 PO (13:19)
[2018-06-30] MEDS ORDERED: CEPH500C PO (13:19)
--- NOTE | 2018-06-30 19:19 | Discharge Summary ---
Discharge Summary Date of Service Jun 30, 2018. Discharge Summary Admission Date: Jun 23, 2018 at 15:36 Discharge Date: Jun 30, 2018 Discharge Disposition: long-term facility ([place], [place]) Principal Diagnosis: acute (on likely chronic) systolic/diastolic CHF Problems/Secondary Diagnoses: 1. CAD, s/p NSTEMI in the past, s/p CABG in 1999, s/p multiple stents in the past as well 2. T2DM 3. HTN 4. tobacco dependence - quit 05/2018 5. hyperlipidemia 6. morbid obesity - BMI 38.6 7. 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 c diff colitis - 06/2018 - dx at [facility] 10. anemia of chronic disease 11. positive troponin - likely myocardial demand ischemia in setting of acute CHF 12. severe anxiety 13. moderate protein calorie malnutrition / hypoalbuminemia 14. GERD 15. frequent PVCs 16. UTI - culture pending at time of discharge 17. CKD stage 3 Immunizations: Have You Had Influenza Vaccine: No History of Pneumococcal: No Procedures: 1. RLE venous duplex study - negative for DVT. 2. application of woundvac, right thigh. 3. echocardiogram - * -- Conclusions -- * 1. Normal left ventricular size. Moderately reduced systolic function. Estimated EF 35%. Global hypokinesis. No left ventricular hypertrophy. Type 2 diastolic dysfunction. * 2. Grossly normal right ventricular size with mildly reduced systolic function. * 3. There is mild mitral regurgitation. * 4. Normal estimated right ventricular systolic pressure; 33mmHg. * 5. Technically difficult study. IV echo contrast may enhance study and allow for better interpretation of wall motion and LV systolic function. * 6. No prior study available for comparison. 4. Left Heart Catheterization - Harlan Fisher MD Findings: LM - Patent distal stent LAD - 90% ostial stenosis, 70*80% diffuse proximal in-stent restenosis, mid LAD with competitive flow form GRIMES; moderate sized 1st diagonal with mild disease. Circumflex - Patent proximal stent, distal segment and L-PDA with luminal irregularities. OM1 with patent stents and mild distal disease. Ramus - completely occluded at distal edge of previously placed stent, distal vessel fills retrograde via left to left collaterals RCA - Small non-dominant with patient prior stent in moderate diffuse in-stent restenosis Patent GRIMES-LAD. Distal LAD small without significant disease. LVEDP - 19 Summary: 1. Severe multivessel [place] coronary artery disease (unchanged from prior catheterization after POBA 11/2016). - Patent LM, proximal circumflex stent - Severe proximal LAD in-stent restenosis - Occluded ramus stent, fills distally via left to left collaterals - Patent OM1 with mild distal disease 2. Patent GRIMES - LAD. Remaining Vein grafts known to be occluded 3. Elevated intracardiac filling pressure 5. PRBCs x 2 units Consultations: cardiology - Harlan Fisher MD surgery - Kj Bhakta MD wound care nurse PT, OT Medication Reconciliation New Medications: Buspirone Hcl (Buspar) 15 Mg Tab 7.5 TAB PO BID for 30 Days, #60 TAB 0 Refills Cephalexin Monohydrate (Keflex) 500 Mg Cap 500 MG PO BID, #13 CAP 0 Refills Lactobacillus (Lactinex) Chw 4 TAB PO TID for 10 Days, #120 TABS 0 Refills Acetaminophen (Mapap) 325 Mg Tab 650 MG PO Q4H PRN for Pain or Fever, #30 TAB 0 Refills Alprazolam (Alprazolam) 0.25 Mg Tab 0.25 MG PO Q6H PRN for anxiety, #30 TAB 0 Refills Ascorbic Acid (Vitamin C) 500 Mg Tab 500 MG PO QAM for 10 Days, #10 TAB 0 Refills Colestipol HCl (Colestid) 1 Gm Tab 1 GM PO BID@1000,2200 for 7 Days, #14 TAB 0 Refills Ferrous Sulfate (Ferrous Sulfate) 325 Mg Tab 325 MG PO BID, #60 TAB 1 Refill Furosemide (Furosemide) 40 Mg Tab 40 MG PO QAM, #30 TAB 5 Refills Gabapentin (Gabapentin) 100 Mg Cap 200 MG PO HS, #60 CAP 5 Refills Insulin Aspart (Novolog Flexpen) 100 Units/Ml Inj 0 UNITS SC AC, #1 PEN 1 Refill sliding scale: for meal-time use only -- for fingerstick blood sugar of 150-200 give 4 units; for fingerstick blood sugar of 201-250 give 6 units; for fingerstick blood sugar of 251-300 give 8 units; for fingerstick blood sugar of 301-350 give 10 units; for fingerstick blood sugar of >350 give 12 units and call Nickel Operator. Insulin Glargine (Lantus Solostar) 100 Unit/Ml Inj 18 UNITS SC BID, #1 PEN 2 Refills Ipratropium-Albuterol (Duoneb) 3 Ml Nebu 3 ML INH Q6H PRN for cough/wheeze, #1 BOX 1 Refill Lisinopril (Lisinopril) 2.5 Mg Tab 2.5 MG PO QAM, #30 TAB 5 Refills Multivitamins/Minerals (Certavite/Antioxidants) 1 Tab Tab 1 TAB PO QAM, #90 TAB 3 Refills Nutritional Supplements (Boost) 1 Liq Liq 1 CAN PO BIDM, #60 CAN 2 Refills Potassium Chloride (Klor-Con M20) 20 Meq Tabcr 20 MEQ PO DAILY, #30 TAB 5 Refills Primidone (Primidone) 50 Mg Tab 50 MG PO HS, #30 TAB 5 Refills Tramadol HCl (Tramadol HCl) 50 Mg Tab 50 MG PO Q6H PRN for Pain, #30 TAB 0 Refills Vancomycin HCl (Vancomycin HCl + Syrspend) 50 Mg/Ml Vanessa 125 MG PO Q6 for 1 Day, #4 DOSE 0 Refills Zinc Sulfate (Zinc Sulfate) 220 Mg Cap 220 MG PO QAM for 10 Days, #10 CAP 0 Refills Changed Medications: Metoprolol Succinate (Toprol Xl) 50 Mg Tabcr 50 MG PO DAILY, #30 TAB 5 Refills (Changed from: Metoprolol Tartrate (Lopressor ) 50 Mg Tab 1 Tab PO BID 30 Days #60 TAB) Continued Medications: Aspirin (Aspirin EC Low Dose) 81 Mg Ectab 81 MG PO QAM for 30 Days, #30 TAB 9 Refills Atorvastatin (Lipitor) 40 Mg Tab 1 TAB PO HS for 90 Days, #90 TAB 3 Refills Clopidogrel Bisulfate (Plavix) 75 Mg Tab 75 MG PO DAILY, #30 TAB Take as directed. Nitroglycerin (Nitrostat) 0.4 Mg/1 Tab Subl 0.4 MG SL UD PRN for Chest Pain for 30 Days, #30 TAB Take 1 tablet every 5 minutes for chest pain, up to 3 times. If pain not resolved call 911 or go to ER. Pantoprazole (Pantoprazole Sodium) 40 Mg Tab 40 MG PO QAM for 30 Days, #30 TAB 9 Refills Discontinued Medications: Cyclobenzaprine Hcl (Flexeril) 10 Mg Tab 1 TAB PO TID for 10 Days, #30 TAB Insulin Aspart 70/30 (Novolog Mix 70/30) Susp 20 UNIT SC QAM, BTL Insulin Aspart 70/30 (Novolog Mix 70/30) Susp 12 UNIT SC QPM, BTL Triamterene/Hctz (Dyazide 37.5MG/25MG) Cap 1 CAP PO DAILY PRN for leg swelling for 30 Days, #30 CAP 3 Refills Discharge Exam Physical Exam: General Appearance: no apparent distress, + obese, + pertinent finding ( looks older than stated age) ENT: pharynx normal Neck: no JVD Respiratory/Chest: no respiratory distress, no accessory muscle use, + rales (minimal, bases, R > L) Cardiovascular: regular rate, rhythm, no gallop, no murmur, normal peripheral pulses Abdomen / GI: normal bowel sounds, non tender, soft, no organomegaly Extremities: no pedal edema Neurologic/Psychiatric: alert, oriented x 3, + pertinent finding (mildly anxious) Skin: + pertinent finding (right groin/upper thigh - large, irregularly shaped wound with very clean, pink bed; no drainage; no odor; good granulation; at least 10cm or more in diameter; near the inner thigh and the right labia majora are several sutures intact; no erythema or signs of superimposed infection) Hospital Course HISTORY OF PRESENT ILLNESS: 62yo female with history of CAD s/p CABG in 1999, HTN, T2DM, morbid obesity, and long-standing asthma who presents as a transfer from [facility] for several concerns including chest tightness, elevated troponin, ongoing shortness of breath, and concerns of LE edema. The patient was just released from [facility] in [place] this past Tuesday after a month-long stay for Kath's Gangrene of the right inner thigh. She required multiple surgeries for debridement, antibiotics, and ultimately placement of a wound vac. During the latter portion of her stay she states she had been short of breath and this was treated with bronchodilators. Upon discharge she states she was still short of breath. On Tuesday of this week a home health nurse placed a wound vac on the right inner thigh wound. Over the next 48 hours there were issues with getting a good seal on the right leg and it was leaking by report. Tuesday pm the patient recalls having shortness of breath at night-time and then had recurrent dyspnea along with chest tightness on . She also reports having had severe bilateral LE edema ("my legs feel like lead") for some time. She also complains of edema in her abdomen, arms, and right side of her face. She went to [facility] afternoon for the above complaints. She was admitted through the [place] ER to their telemetry unit. The patient states the wound vac was removed due to persistent leaking. Records from [place] were reviewed and the following were found - 1. CTA chest was negative for PE but showed small b/l pleural effusions; no pneumonia seen 2. b/l LE dopplers negative for DVT although the right leg was a limited study due to her wound 3. EKG with NSR and no ST changes (my reading) 4. serial troponins - 0.057, 0.052, 0.060, 0.053 During my initial assessment the patient complained of fatigue but confirmed her dyspnea had improved. Records suggest she received at least 2 doses of IV lasix while at [facility]. She denied any chest pain. Lastly, the patient mentions she was diagnosed with c. diff colitis while at [facility]. HOSPITAL COURSE: At time of transfer from [facility] the patient was in decompensated CHF clinically and radiographically. Repeat troponins at [facility] were similar in value in comparison to [facility] and felt to represent myocardial demand ischemia rather than a true ACS. Echocardiogram was obtained and unfortunately revealed an EF of 35% with grade 2 diastolic dysfunction. There was not an old echocardiogram from the [facility] system to compare with. The patient believed she had had an echocardiogram from [facility] and this was requested via medical records but we did not receive a report. The CHF was likely due to ischemic cardiomyopathy. [id number] the patient was aggressively diuresed and she had about a 7kg weight loss while hospitalized. Weight on day of discharge was 89.7kg. She will continue on 40mg of lasix daily along with fluid and salt restriction. Daily weights will be needed at the care home. The patient was seen in consult by Dr. Harlan Fisher, her primary marine electrician, and he advised a repeat heart catheterization in light of her new- onset CHF. Heart catheterization showed significant CAD (see report above) but no specific lesion needed intervention. Medical management was advised. Thus, she will continue her chronic CAD meds including beta malcolm, aspirin, plavix, statin, and PARAM. Other issues addressed while hospitalized - 1. recent Kath's gangrene of right groin/thigh requiring hospitalization at [facility] - the patient was seen by the [facility] and surgery. Woundvac was successfully placed, and the vac is on continuous suction. MVI/ zinc/vitamin C were added to help promote wound healing along with Boost nutritional drinks for her hypoalbuminemia. There was never any sign of superimposed infection of this wound while hospitalized. She will follow-up with Dr. Daniel Euceda at [facility] on 07/03/18, as well as the [facility] on 07/04/18. 2. anemia - likely due to chronic disease - vitamin B12, folate were both normal. Iron studies were most consistent with ACD but she might have an element of iron deficiency anemia as well. She received 2 units of PRBCs while hospitalized, and hemoglobin prior to discharge was 11.8. She should remain on iron for a period of time. 3. c diff colitis - she received oral vancomycin her entire stay and 06/30/18 was her 14th day of treatment. Lactinex TID and Colestipol were used for symptomatic treatment. Her stools were nearly normal by time of discharge. Recommend 1 more week of colestipol along with probiotics. 4. severe anxiety - the patient had panic attacks and severe anxiety intermittently her entire stay. I question if she has underlying depression in light of her recent health issues and prolonged hospital stay last month in [place]. She was initiated on buspar twice daily with low-dose xanax on a prn basis. This provided good results for her. Recommend counseling upon transfer to SNF and ultimately as an outpatient. 5. CKD stage 3 - creatinine ranged 1.1 to 1.3 while hospitalized. 6. UTI - on day of discharge the patient complained of mild dysuria. U/a was suspicious for UTI. Urine culture was sent on 06/30/18. She was initiated on keflex 500mg BID for 7 days at that time. Of note - the patient had had a CT of the abdomen & pelvis at [facility],, and failed to show any kidney stones or abnormalities of the urinary tract at that time. 7. severe deconditioning - the patient was seen by PT/OT while hospitalized. Rehab was recommended. She will transfer to [facility] in [place], [place] for that purpose. Other medical problems including T2DM, asthma, etc remained stable while hospitalized. 06/28/18 06:03 06/29/18 06:08 06/28/18 06:03 06/29/18 06:08 06/30/18 05:36 Test 06/27/18 20:58 06/28/18 06:03 06/28/18 07:18 06/28/18 11:18 Bedside Glucose 225 mg/dl (70-90) 126 mg/dl (70-90) 131 mg/dl (70-90) Red Blood Count 3.84 M/uL (4.2-5.4) Mean Corpuscular Volume 90.6 fL (80-100) Mean Corpuscular Hemoglobin 29.7 pg (25-34) Mean Corpuscular Hemoglobin Concent 32.8 g/dl (32-36) RDW Standard Deviation 52.6 fL (36.4-46.3) RDW Coefficient of Variation 16.5 % (11.5-14.5) Mean Platelet Volume 8.5 fL (7.4-10.4) Anion Gap 11.0 mmol/L (3-11) Est Creatinine Clear Calc Drug Dose 54.1 ml/min Estimated GFR () 61.2 Estimated GFR (Non- 52.8 BUN/Creatinine Ratio 13.7 (10-20) Calcium Level 8.8 mg/dl (8.5-10.1) Magnesium Level 2.3 mg/dl (1.8-2.4) Troponin I 0.043 ng/ml (0-0.045) Test 06/28/18 16:16 06/28/18 20:15 06/29/18 06:08 06/29/18 07:27 Bedside Glucose 139 mg/dl (70-90) 159 mg/dl (70-90) 118 mg/dl (70-90) Red Blood Count 4.04 M/uL (4.2-5.4) Mean Corpuscular Volume 91.3 fL (80-100) Mean Corpuscular Hemoglobin 29.2 pg (25-34) Mean Corpuscular Hemoglobin Concent 32.0 g/dl (32-36) RDW Standard Deviation 54.9 fL (36.4-46.3) RDW Coefficient of Variation 16.9 % (11.5-14.5) Mean Platelet Volume 8.2 fL (7.4-10.4) Anion Gap 9.0 mmol/L (3-11) Est Creatinine Clear Calc Drug Dose 50.9 ml/min Estimated GFR () 57.5 Estimated GFR (Non- 49.6 BUN/Creatinine Ratio 13.8 (10-20) Calcium Level 8.8 mg/dl (8.5-10.1) Test 06/29/18 11:13 06/29/18 16:30 06/29/18 20:32 06/30/18 05:36 Bedside Glucose 150 mg/dl (70-90) 131 mg/dl (70-90) 201 mg/dl (70-90) Anion Gap 9.0 mmol/L (3-11) Est Creatinine Clear Calc Drug Dose 41.7 ml/min Estimated GFR () 50.7 Estimated GFR (Non- 43.7 BUN/Creatinine Ratio 15.8 (10-20) Calcium Level 8.9 mg/dl (8.5-10.1) Magnesium Level 2.4 mg/dl (1.8-2.4) Test 06/30/18 07:22 06/30/18 11:15 06/30/18 11:30 Bedside Glucose 123 mg/dl (70-90) 233 mg/dl (70-90) Urine Color DK YELLOW Urine Appearance CLOUDY (CLEAR) Urine pH 7.5 (4.5-7.5) Urine Specific [facility] 1.025 (1.000-1.030) Urine Protein NEG (NEG) Urine Glucose (UA) NEG (NEG) Urine Ketones NEG (NEG) Urine Occult Blood 1+ (NEG) Urine Nitrite NEG (NEG) Urine Bilirubin NEG (NEG) Urine Urobilinogen NEG (NEG) Urine Leukocyte Esterase MODERATE (NEG) Urine WBC (Auto) >30 /hpf (0-5) Urine RBC (Auto) 0-4 /hpf (0-4) Urine Hyaline Casts (Auto) 1-5 /lpf (0-5) Urine Epithelial Cells (Auto) >30 /lpf (0-5) Urine Bacteria (Auto) 4+ (NEG) Urine Crystals TRIPLE PHOSPHATE Urine Pathogenic Casts /lpf (0) Total Time Spent: Greater than 30 minutes This includes examination of the patient, discharge planning, medication reconciliation, and communication with other providers. Discharge Instructions Please refer to the electronic Patient Visit Report (Discharge Instructions) for additional information. Follow-Up 1. Dr. Daniel Euceda, [facility] General Surgery - 07/03/18 - for recheck of right thigh wound 2. [facility] - TuesdayJuly 04 at 2:20PM 3. Dr. Harlan Fisher, [facility] Cardiology, within 1-2 weeks 4. student ministries director of SNF within 48 hours CBC, BMP, and magnesium level recommended in 3 days for stability Additional Copies To Harlan Fisher MD; Chu Montero Brandon M. M.D.; Daniel Euceda M.D.
== END 2018-06-30 13:55 | DRG 286 ==
LOC: C.2E 15:36
PROVIDERS: ADMIT Internal Medicine; ATTEND Internal Medicine
PROC: B21 Imaging, Heart, Fluoroscopy (ICD-10-PCS; principal; 2018-06-26 12:00)
PROC: B2100ZZ Fluoroscopy of Single Coronary Artery using High Osmolar Contrast (ICD-10-PCS; principal; 2018-06-26 12:00)
PROC: 4A023N7 Measurement of Cardiac Sampling and Pressure, Left Heart, Percutaneous Approach (ICD-10-PCS; principal; 2018-06-26 12:00)
DX: I13.0 Hypertensive heart and chronic kidney disease with heart failure and stage 1 through stage 4 chronic kidney disease, or unspecified chronic kidney disease (principal); I50.33 Acute on chronic diastolic (congestive) heart failure; J81.1 Chronic pulmonary edema; Z68.41 Body mass index [BMI] 40.0-44.9, adult; I24.8 Other forms of acute ischemic heart disease; N39.0 Urinary tract infection, site not specified; I25.10 Atherosclerotic heart disease of native coronary artery without angina pectoris; E66.01 Morbid (severe) obesity due to excess calories; J45.909 Unspecified asthma, uncomplicated; N76.89 Other specified inflammation of vagina and vulva; D64.9 Anemia, unspecified; D63.8 Anemia in other chronic diseases classified elsewhere; K21.9 Gastro-esophageal reflux disease without esophagitis; N18.3 Chronic kidney disease, stage 3 (moderate); E11.22 Type 2 diabetes mellitus with diabetic chronic kidney disease; Z95.1 Presence of aortocoronary bypass graft; Z87.891 Personal history of nicotine dependence; Z79.82 Long term (current) use of aspirin; Z79.4 Long term (current) use of insulin; Z82.49 Family history of ischemic heart disease and other diseases of the circulatory system; Z95.5 Presence of coronary angioplasty implant and graft; Z83.3 Family history of diabetes mellitus